=== PATIENT | female | born 1960 | race Caucasian/White ===

== ENCOUNTER → 2017-09-20 12:45 | Outpatient (CLI) | payer BC, SELFPAY ==
--- NOTE | 2017-09-20 12:48 | BI_ITS ---
MAMMOGRAPHY - BILATERAL SCREENING REASON FOR EXAM: Female, 57 years old. Routine annual screening examination. PERTINENT HISTORY: Mother with breast cancer. TECHNIQUE: Digital bilateral breast luc (3D mammographic acquisition) in the CC and MLO projections. 2-D mediolateral oblique (MLO) and craniocaudad (CC) views of both breasts were obtained. CAD: Full Field Digital Mammography with Computer Added Detection was performed. COMPARISON: Comparison is made with prior study dated August 03, 2016 and January 29 FINDINGS: Breast Composition: The breasts are heterogeneously dense, which may obscure small masses. There are no dominant masses or suspicious calcifications. No other significant abnormalities are identified. There has been no significant change since the prior study. BI/SCREENING MAMM (CAD), BILAT IMPRESSION: Stable bilateral screening mammogram. Yearly follow-up mammogram recommended. (A) ASSESSMENT CATEGORY: BIRADS Category 1: Negative. A letter regarding these results will be sent to the patient by the facility within 30 days. Approximately 10% of breast cancers are not detected by mammography. A normal mammogram should not delay biopsy of a clinically suspicious abnormality. [id number] Electronically Signed: Vance Hairston MD at 14:59 EDT Tel [phone], Service support ,
== END ==
PROVIDERS: Family Provider Internal Medicine; PCP Internal Medicine; Visit Provider Obstetrics & Gynecology
DX: Z12.31 Encounter for screening mammogram for malignant neoplasm of breast (principal)
CPT/HCPCS: 77063; 77067

== ENCOUNTER → 2018-10-18 11:21 | Outpatient (CLI) | payer BC, SELFPAY | PROVIDERS: Visit Provider Obstetrics & Gynecology | DX: M85.9 Disorder of bone density and structure, unspecified (principal) | CPT/HCPCS: 36415; 82306 ==

== ENCOUNTER → 2018-11-13 10:17 | Outpatient (CLI) | payer BC, SELFPAY ==
--- NOTE | 2018-11-13 10:21 | BI_ITS ---
MAMMOGRAPHY - BILATERAL SCREENING REASON FOR EXAM: Female, 58 years old. Routine annual screening examination. PERTINENT HISTORY: Mother with breast cancer. TECHNIQUE: Digital bilateral breast danielle (3D mammographic acquisition) in the CC and MLO projections. 2-D mediolateral oblique (MLO) and craniocaudad (CC) views of both breasts were obtained. CAD: Full Field Digital Mammography with Computer Added Detection was performed. COMPARISON: Comparison is made with prior study dated September 20, 2017 and August 03, 2016. FINDINGS: Breast Composition: The breasts are heterogeneously dense, which may obscure small masses. There are no dominant masses or suspicious calcifications. No other significant abnormalities are identified. There has been no significant change since the prior study. BI/SCREEN MAMM (CAD) W/DANIELLE BILAT IMPRESSION: Stable bilateral screening mammogram. Yearly follow-up mammogram recommended. (A) ASSESSMENT CATEGORY: BIRADS Category 1: Negative. A letter regarding these results will be sent to the patient by the facility within 30 days. Approximately 10% of breast cancers are not detected by mammography. A normal mammogram should not delay biopsy of a clinically suspicious abnormality. [id number] Electronically Signed: Vance Hairston, at 12:34 EDT , Service support ,
--- NOTE | 2018-11-13 10:24 | BD_ITS ---
STUDY: DUAL ENERGY X-RAY ABSORPTIOMETRY / DXA REASON FOR EXAM: Female, 58 years old. The patient is postmenopausal. Loss of height. TECHNIQUE: Bone Mineral Density (BMD) measurements of lumbar spine and bilateral hips were obtained. COMPARISON: Comparison is made with prior study dated August 03, 2016. FINDINGS: Lumbar Spine (L1-L4): g/cm2 (0.905) / T-score (-2.3) / Z-score (-1.4) Findings are suggestive of osteopenia with a high fracture risk. Left Femur Total: g/cm2 (0.738) / T-score (-2.1) / Z-score (-1.4) Left Femoral Neck: g/cm2 (0.700) / T-score (-2.4) / Z-score (-1.4) Right Femur Total: g/cm2 (0.696) / T-score (-2.5) / Z-score (-1.4) The T-Scores on the most recent prior examination were: Lumbar Spine (L1-L4): There has been worsening of bone density since the previous examination. Left Femur Total: which represents a worsening of 2%. Right Femur Total: which represents a worsening of 8.3%. BD/Dexa Bone Density Study IMPRESSION: The patient is considered osteopenic as outlined below according to World Malcolm Organization (WHO) criteria with a high fracture risk. There has been worsening of bone density since the previous examination. Reference Information: The T-score is the number of standard deviations above or below the standard which is normal for young adults at their peak bone mineral density. The World Health Organization (WHO) interprets the T-scores as follows: Above -1 Normal bone density Between -1 and -2.5 Osteopenia Equal to / or below -2.5 Osteoporosis As a practical clinical guideline, osteopenia may be graded as follows: Mild -1 through -1.5 Moderate -1.6 through -2.0 Severe -2.1 through -2.4 The Z-score is the number of standard deviations above or below age-matched controls. A Z-score of less than -1.5 would be considered abnormal. References: 1. NIH Osteoporosis and Related Bone Diseases http://www.osteo.org 2. International Society for Clinical Densitometry http://www.iscd.org 3. National Osteoporosis Foundation http://www.nof.org Electronically Signed: Vance Hairston, at 8:35 EDT , Service support ,
== END ==
PROVIDERS: Family Provider Internal Medicine; PCP Internal Medicine; Referring Provider Obstetrics & Gynecology; Visit Provider Obstetrics & Gynecology
DX: Z12.31 Encounter for screening mammogram for malignant neoplasm of breast (principal); M85.9 Disorder of bone density and structure, unspecified
CPT/HCPCS: 77063; 77067; 77080

== ENCOUNTER → 2018-12-16 09:48 | Outpatient (CLI) | payer BC, SELFPAY ==
[2018-12-12 14:15] VITALS: BMI 22.3
[2018-12-16 10:48] LABS: Absolute Lymphocyte Count 2.36 X10^3/uL (0.83-4.51); Absolute Neutrophil Count 2.8 X10^3/uL (2.0-7.7); Basophil# 0.07 X10^3/uL; Basophil% 1.2 % (0-1); Eosinophil# 0.07 X10^3/uL; Eosinophils% 1.2 % (0-5); Hematocrit 40.7 % (37-47); Hemoglobin 13.4 g/dL (12.0-15.0); Lymphocyte # 2.36 X10^3/ul (4.0); Lymphocyte % 39.8 % (19-41); Mean Corp Hgb Conc 32.9 g/dL (32-36); Mean Corpuscular Hgb 31.7 pg (27.0-32.0); Mean Corpuscular Volume 96.2 fL (81-99); Mean Platelet Vol. 10.6 fl (6.2-12.0); Monocyte# 0.59 X10^3/uL; Monocyte% 9.9 % (0-10); NRBC Flagged by Analyzer 0 % (0-5); Neutrophil # 2.83 X10^3/uL (2.7-7.7); Neutrophil % 47.7 % (47-70); Platelet Count 232 K/mm3 (150-450); RBC Distribution Width CV 12.7 % (11.6-14.6); RBC Distribution Width SD 45.1 fl (35.1-43.9); Red Blood Count 4.23 M/mm3 (4.2-5.4); White Blood Count 5.9 K/mm3 (4.4-11.0)
[2018-12-16 11:11] LABS: PTHIN 60.7 pg/mL (18.4-80.1)
[2018-12-16 11:16] LABS: AST(SGOT) 21 U/L (15-37); Alanine Aminotransfer ALT/SGPT 29 U/L (13-56); Albumin, Serum 3.8 g/dL (3.2-5.0); Alkaline Phosphatase 65 U/L (45-117); Anion Gap 1 (5-15); BUN 16 mg/dL (7-18); BUN/Creat Ratio 17.1 RATIO (10-20); Calcium,Total 8.9 mg/dL (8.5-10.1); Chloride 106 mmol/L (98-107); Cholesterol 192 mg/dL (200); Creatinine, Serum 0.94 mg/dL (0.55-1.02); EST Glomerular Filtration Rate 66 mL/min (>60); Est Glom Filt Rate - Afr Amer 80 mL/min (>60); Globulin 3.9 g/dL (2.2-4.2); Glucose 93 mg/dL (74-106); High Density Lipoprotein 75 mg/dL; Potassium 4.4 mmol/L (3.5-5.1); Protein, Total 7.7 g/dL (6.4-8.2); Sodium Level 139 mmol/L (136-145); Triglycerides 61 mg/dL; Very Low Density Lipoprotein 12 mg/dL (5-40)
== END ==
PROVIDERS: Family Provider Internal Medicine; PCP Internal Medicine; Referring Provider Internal Medicine Endocrinology, Diabetes & Metabolism; Visit Provider Internal Medicine Endocrinology, Diabetes & Metabolism
DX: M81.0 Age-related osteoporosis without current pathological fracture (principal)
CPT/HCPCS: 36415; 80053; 80061; 83970; 85025

== ENCOUNTER → 2020-04-13 15:19 | Outpatient (CLI) | payer BC, SELFPAY ==
[2020-04-09 16:05] VITALS: BMI 22.8
[2020-04-13 16:58] LABS: ALB/GLOB Ratio 0.9 RATIO (0.9-2.4); AST(SGOT) 23 U/L (15-37); Alanine Aminotransfer ALT/SGPT 31 U/L (13-56); Albumin, Serum 3.7 g/dL (3.2-5.0); Alkaline Phosphatase 85 U/L (45-117); Anion Gap 5 (5-15); BUN 20 mg/dL (7-18); BUN/Creat Ratio 21.8 RATIO (10-20); Calcium,Total 8.9 mg/dL (8.5-10.1); Chloride 104 mmol/L (98-107); Creatinine, Serum 0.92 mg/dL (0.55-1.02); EST Glomerular Filtration Rate 67 mL/min (>60); Est Glom Filt Rate - Afr Amer 81 mL/min (>60); Globulin 3.9 g/dL (2.2-4.2); Glucose 124 mg/dL (74-106); Potassium 4.3 mmol/L (3.5-5.1); Protein, Total 7.6 g/dL (6.4-8.2); Sodium Level 139 mmol/L (136-145)
[2020-04-13 17:01] LABS: Vitamin D,25 Hydroxy 15.8 ng/mL
== END ==
PROVIDERS: PCP Internal Medicine; Visit Provider Internal Medicine Endocrinology, Diabetes & Metabolism
DX: E55.9 Vitamin D deficiency, unspecified (principal); M81.0 Age-related osteoporosis without current pathological fracture
CPT/HCPCS: 36415; 80053; 82306

== ENCOUNTER → 2020-08-10 15:57 | Outpatient (CLI) | payer BC, SELFPAY ==
[2020-04-09 16:05] VITALS: BMI 22.8
[2020-08-15 10:20] LABS: HPV APTIMA, High Risk Negative (Negative)
== END ==
PROVIDERS: PCP Internal Medicine; Visit Provider Student in an Organized Health Care Education/Training Program
DX: Z12.4 Encounter for screening for malignant neoplasm of cervix (principal)
CPT/HCPCS: 87624; 88175; G0145

== ENCOUNTER → 2020-08-26 12:17 | Outpatient (CLI) | payer BC, SELFPAY ==
[2020-04-09 16:05] VITALS: BMI 22.8
--- NOTE | 2020-08-26 12:20 | BI_ITS ---
MAMMOGRAPHY - BILATERAL SCREENING REASON FOR EXAM: Female, 60 years old. Routine annual screening examination. PERTINENT HISTORY: Mother with breast cancer. TECHNIQUE: Digital bilateral breast danielle (3D mammographic acquisition) in the CC and MLO projections. 2-D mediolateral oblique (MLO) and craniocaudad (CC) views of both breasts were obtained. CAD: Full Field Digital Mammography with Computer Added Detection was performed. COMPARISON: Comparison is made with prior study dated 11/13/2018 and 09/20/2017. FINDINGS: Breast Composition: The breasts are heterogeneously dense, which may obscure small masses. There are no dominant masses or suspicious calcifications. No other significant abnormalities are identified. There has been no significant change since the prior study. BI/SCRN MAMM (CAD)W/DANIELLE BILAT IMPRESSION: Stable bilateral screening mammogram. Yearly follow-up mammogram recommended. (A) ASSESSMENT CATEGORY: BIRADS Category 1: Negative. A letter regarding these results will be sent to the patient by the facility within 30 days. Approximately 10% of breast cancers are not detected by mammography. A normal mammogram should not delay biopsy of a clinically suspicious abnormality. [id number] Electronically Signed: Vance Hairston MD at 13:20 EDT , Service support ,
== END ==
PROVIDERS: PCP Internal Medicine; Referring Provider Student in an Organized Health Care Education/Training Program; Visit Provider Student in an Organized Health Care Education/Training Program
DX: Z12.31 Encounter for screening mammogram for malignant neoplasm of breast (principal); Z80.3 Family history of malignant neoplasm of breast
CPT/HCPCS: 77063; 77067

== ENCOUNTER 2021-04-11 16:17 | Emergency (ER) | payer BC, SELFPAY ==
[2021-04-11] VITALS (7 sets, daily range): BP systolic 99–123; BP diastolic 69–82; PULSE 62–84; RESP 14–20; TEMP 36; O2SAT 99–100; BMI 21.9
--- NOTE | 2021-04-11 16:25 | RAD_ITS ---
STUDY: X-RAY - LEFT WRIST REASON FOR EXAM: Female, 61 years old. PT FELL ROLLER SKATING, PAIN AND DEFORMITY TECHNIQUE: 3 view(s) of the wrist were obtained. COMPARISON: None. FINDINGS: An acute comminuted impacted and slightly foreshortened fracture of the distal radial metaphysis and articular surface is present. The major fracture fragments are mildly displaced. An acute fracture is also seen through the base of the ulnar styloid with mild displacement. The surrounding soft tissues are mildly swollen. Normal radiocarpal articulation. Normal distal radioulnar articulation. Normal carpal bones. Normal carpal articulations. Normal carpometacarpal articulation of the thumb. Normal second through fifth carpometacarpal articulations. Normal visualized metacarpal bones. RAD/Wrist min 3 Views IMPRESSION: 1. Acute comminuted fracture of the distal radial metaphysis and articular surface 2. Acute displaced fracture of the ulnar styloid Electronically Signed: Michelet Talbert MD at 17:14 EST ,
[2021-04-11] MEDS: Morphine 4 MG/ML Syringe IV (17:07)
[2021-04-11] MEDS: Ondansetron 4 MG/2 ML Vial IV (17:07)
--- NOTE | 2021-04-11 17:32 | EX.ED.UPPERE ---
HPI <STEVE Marie - Last Filed: 04/11/21 18:32> History of Present Illness Chief Complaint: Upper Extremity Injury Narrative Narrative: 61-year-old [id number] female was rollerskating and fell and caught herself with her left wrist. She has a wrist deformity and pain. No paresthesias. Denies head injury or other injuries. PFSH <STEVE Marie - Last Filed: 04/11/21 18:32> PFSH Medical History (Updated 04/11/21 @ 17:32 by STEVE Marie) Bone fracture Heart murmur Osteopenia Vitamin deficiency Home Medications BD Ultra-Fine Belem Pen Needle 32 gauge x #90 ea NS 04/09/20 [Rx Last Taken Unknown] cholecalciferol (vitamin D3) 1,250 mcg (50,000 unit) capsule 50,000 unit PO QWEEK #12 cap 04/13/20 [Rx Last Taken Unknown] Forteo 20 mcg SC DAILY #7.2 ml NS 01/11/21 [Rx Last Taken Unknown] ondansetron 4 mg PO Q6H PRN #12 tab 04/11/21 [Rx Last Taken Unknown] oxycodone-acetaminophen [Percocet] 1 tab PO Q6H PRN 3 Days #12 tab 04/11/21 [Rx Last Taken Unknown] Allergy/AdvReac Type Severity Reaction Status Date / Time No Known Allergies Allergy Unverified 04/11/21 10:39 Family History Mother Breast cancer Surgical History History of Social History Smoking Status: Never smoker alcohol intake: current alcohol intake frequency: a few times a week what type of physical activity do you participate in: weight training frequency: 3-4 times per week ROS <STEVE Marie - Last Filed: 04/11/21 18:32> ROS ED ROS Narrative Constitutional: Negative for fever, chills, malaise. Eyes: Negative for visual change. ENT: Negative for sore throat, ear pain, rhinorrhea. CVS: Negative for palpitations, chest pain, syncope. Respiratory: Negative for shortness of breath, cough, orthopnea. GI: Negative for abdominal pain, nausea, vomiting. : Negative for dysuria, hematuria or frequency. Neuro: Negative for headache, motor/sensory dysfunction. Skin: Negative for rash, abscess, or wound. Musc: Positive for wrist pain, swelling, trauma. Heme: Negative for easy bruising, bleeding, lymphadenopathy. EXAM <STEVE Marie - Last Filed: 04/11/21 18:32> Physical Exam Narrative Exam Narrative: CONST: Patient sitting in no acute distress. EYES: Normal inspection. Head: Head normocephalic, atraumatic. NECK: Normal inspection. RESP: No respiratory distress, CTAB. CVS: Regular rate and rhythm, no murmur, no gallop. No chest wall tenderness. ABD: Soft and nontender, no guarding or rebound, nondistended. Back: Normal inspection, no CVA tenderness. SKIN: Color normal, no rash, warm, dry, intact. EXTREMITIES: Left wrist deformity with diffuse tenderness, 2+ radial pulse. Sensation intact in median, ulnar, radial distributions. NEURO: Oriented x4. PSYCH: Normal affect. Const Vital Signs: 04/11/21 16:18 Temperature 96.8 F L Temperature Source Temporal Pulse Rate 77 Respiratory Rate 17 Blood Pressure 104/73 Blood Pressure Mean 83 Pulse Ox 99 Oxygen Delivery Method Room Air MDM <STEVE Marie - Last Filed: 04/11/21 18:32> MDM MDM Narrative Medical decision making narrative: Patient presents with a left wrist deformity after mechanical fall. She appears well nontoxic. Vital signs within normal limits. She has no evidence of head or neck trauma. She has an obvious left wrist deformity with pulses and sensation intact. Exam otherwise negative. X-ray shows a comminuted and impacted distal radius fracture with significant angulation. There is also a fracture of the ulnar styloid. I consulted the orthopedic doctor, Dr. Gabriele Jennings, who came to bedside for reduction. Patient was consented for procedural sedation which was administered by the ED attending. Wrist was placed in a splint and postreduction x-rays confirmed improved alignment. Patient tolerated the procedure well and is now awake and alert and comfortable with the plan. I prescribed Percocet, Zofran, and she has orthopedic follow-up on . She was discharged in stable condition. Diagnosis 1. Closed distal radius fracture, left wrist 2. Closed ulnar styloid fracture, left wrist Radiography Diagnostic Testing: Clinical Impression(s) from Imaging Studies Wrist X-Ray 04/11/21 16:25 IMPRESSION: 1. Acute comminuted fracture of the distal radial metaphysis and articular surface 2. Acute displaced fracture of the ulnar styloid Electronically Signed: Michelet Talbert MD at 17:14 EST Reading Location ID and State: [facility] / [place] , Service support , <Dr. Komal Martínez MD - Last Filed: 04/11/21 21:14> [facility] Treatment and Re-Evaluation Comments:: Patient seen and evaluated with physician library serials assistant. Patient's chart reviewed and endorsed to myself. Patient presents after a fall while rollerskating. She has obvious deformity to her left wrist. She denies any other injury. She is right-hand dominant. Head neck examination unremarkable. Heart is regular rate and rhythm. Lung sounds are clear. Abdomen is soft and nontender. Left upper extremity examination reveals obvious deformity at the left wrist. Rings are removed from her fingers. Palpable radial pulses are noted. She can wiggle fingers and has good sensation. No tenderness noted at the elbow or shoulder. X-rays revealed comminuted distal radius and ulnar styloid fractures. X-rays discussed with orthopedics who presented to bedside for reduction. I provided procedural sedation. Patient was placed on bark tanner with oxygen. She was given a total of 130 mg of propofol over several smaller boluses. Good sedation was noted and left wrist was reduced and splinted by Dr. Jennings. Patient will from sedation without difficulty. Total sedation time was 6 minutes. Patient is written for pain medication. She has orthopedic follow-up scheduled later this week. Discharge Plan Triage Chief Complaint: Upper Extremity Injury ED Provider: Divya Merrill Dx/Rx/DC Orders Clinical Impression: Fracture of wrist Instructions: ED Colles Fracture, Reduction Required Prescriptions: New oxycodone-acetaminophen [Percocet] 5-325 mg tablet 1 tab PO Q6H PRN (Reason: pain) 3 Days Qty: 12 RF: 0 ondansetron 4 mg tablet,disintegrating 4 mg PO Q6H PRN (Reason: nausea and vomiting) Qty: 12 RF: 0 No Action (DME) pen needle, diabetic [BD Ultra-Fine Belem Pen Needle] 32 gauge x 5/32 needle See Rx Instructions .ROUTE .MEDSUPPLY Qty: 90 RF: 3 cholecalciferol (vitamin D3) 1,250 mcg (50,000 unit) capsule 50,000 unit PO QWEEK Qty: 12 RF: 3 Forteo 20 mcg/dose (600mcg/2.4mL) pen injector 20 mcg SC DAILY Qty: 7.2 RF: 2 Primary Care Provider: Heather Rivera Referrals: Heather Rivera DO [Primary Care Provider] - Gabriele Jennings MD [STAFF PHYSICIAN] - Activity Restrictions/Additional Instructions: Today you were seen for fracture of your wrist. It was reduced which means the orthopedic doctor tried to put it back in alignment and placed a splint. I prescribed Percocet to take as needed for pain and Zofran to prevent nausea and vomiting. Please follow-up with the orthopedic doctor as instructed. Disposition Disposition: Home, Self Care Discharge Date/Time: 04/11/21 18:16
[2021-04-11] MEDS: Propofol 200 MG/20 ML Vial IV BOLUS (17:34)
--- NOTE | 2021-04-11 18:03 | CON.PCM_ITS ---
Assessment & Plan Assessment/Plan (1) Fracture of wrist: PLAN: Her diagnosis and treatment options regarding her left distal radius Colles' type fracture discussed with her and her family. Patient did wish to have closed reduction. She understood this would be done with the help of the ER physician, conscious sedation. She understood if the fracture does not hold in place after reduction she may need surgical intervention. No guarantees were stated or implied. Procedure: After obtaining appropriate consent patient underwent conscious sedation is administered by the ER physician. After adequate conscious sedation she underwent reduction with traction countertraction and manipulation of her left wrist. ER nurse was assisting me. After adequate reduction was carried out fluoroscopic images obtained showing good reduction. At this point she was placed in well-padded AP splints with careful three-point bending of the splints. Once splints were adequately hardened in a short arm fashion further set of AP and lateral x-rays taken and saved showing near anatomic position of the radius and ulna. After the splints had completely hardened I put an elbow splint extending from her upper arm to her wrist with the elbow at 90 degrees. Patient will continue under the care of the emergency room physician. She will be discharged to home when criteria are met. Appropriate pain medication per the ER physician. Sling if needed. Ice and elevation. We will plan to see her in the office in less than 1 week for x-rays with her splint on. Sooner if needed. All of their questions were answered. This note was generated with [employer] dictation software. It may contain incorrect words, spelling, and punctuation that were not noted in checking the note before signing. HPI Consult Data Date of Consult: 04/11/21 HPI Narrative HPI Narrative: ALEXA MINA, is a 61 F who presents after falling while rollerblading earlier today. She sustained left wrist pain and deformity. Denies head injury or loss of consciousness. She was brought to [facility] for a fracture. Orthopedics was consulted. Denies numbness or tingling in the fingers. [facility] Medical History (Updated 04/11/21 @ 17:32 by STEVE Marie) Bone fracture Heart murmur Osteopenia Vitamin deficiency Home Medications BD Ultra-Fine Belem Pen Needle 32 gauge x #90 ea NS 04/09/20 [Rx Last Taken Unknown] cholecalciferol (vitamin D3) 1,250 mcg (50,000 unit) capsule 50,000 unit PO QWEEK #12 cap 04/13/20 [Rx Last Taken Unknown] Forteo 20 mcg SC DAILY #7.2 ml NS 01/11/21 [Rx Last Taken Unknown] ondansetron 4 mg PO Q6H PRN #12 tab 04/11/21 [Rx Last Taken Unknown] oxycodone-acetaminophen [Percocet] 1 tab PO Q6H PRN 3 Days #12 tab 04/11/21 [Rx Last Taken Unknown] Allergy/AdvReac Type Severity Reaction Status Date / Time No Known Allergies Allergy Unverified 04/11/21 10:39 Family History Mother Breast cancer Surgical History History of Social History Smoking Status: Never smoker alcohol intake: current alcohol intake frequency: a few times a week what type of physical activity do you participate in: weight training frequency: 3-4 times per week ROS ROS Narrative Denies any recent problems or difficulties with eyes ears nose or throat heart or lungs bowel or bladder function. Physical Exam Narrative Left wrist has obvious deformity. Left wrist has pain on palpation. Some swelling. Hand is neurovascular intact. Fingers are neurovascular intact. No pain at the elbow or shoulder. No pain at the right upper extremity. X-rays AP lateral oblique of left wrist shows a distal radius Colles' type fracture with apex volar angulation. Significant comminution and shortening and displacement. Case discussed with ER physician Radiology Impression Wrist X-Ray 04/11/21 16:25 IMPRESSION: 1. Acute comminuted fracture of the distal radial metaphysis and articular surface 2. Acute displaced fracture of the ulnar styloid Electronically Signed: Michelet Talbert MD at 17:14 EST Reading Location ID and State: [facility] / [place] , Service support ,
== END 2021-04-11 18:16 | disposition home or self-care (01) ==
PROVIDERS: Emergency Provider Physician Assistant; PCP Internal Medicine; Visit Provider Physician Assistant
DX: S52.612A Displaced fracture of left ulna styloid process, initial encounter for closed fracture (principal); W23.0XXA Caught, crushed, jammed, or pinched between moving objects, initial encounter; S52.353A Displaced comminuted fracture of shaft of radius, unspecified arm, initial encounter for closed fracture; S52.502A Unspecified fracture of the lower end of left radius, initial encounter for closed fracture; W19.XXXA Unspecified fall, initial encounter; M25.539 Pain in unspecified wrist
CPT/HCPCS: 25605; 73110; 76000; 99283; J7030; A4216; J2405

== ENCOUNTER 2021-04-20 11:01 | Outpatient (CLI) | payer BC, SELFPAY ==
--- NOTE | 2021-04-20 11:05 | BD_ITS ---
STUDY: DUAL ENERGY X-RAY ABSORPTIOMETRY / DXA REASON FOR EXAM: Female, 61 years old. Osteoporosis TECHNIQUE: Bone Mineral Density (BMD) measurements of lumbar spine and bilateral hips were obtained. COMPARISON: Comparison is made with prior study dated 11/13/2018 FINDINGS: Lumbar Spine (L1-L4): g/cm2 (0.823) / T-score (-2.0) / Z-score (-0.7) Findings are suggestive of osteopenia with a moderate fracture risk. Left Femur Total: g/cm2 (0.722) / T-score (-1.8) / Z-score (-0.9) Left Femoral Neck: g/cm2 (0.552) / T-score (-2.7) / Z-score (-1.4) Right Femur Total: g/cm2 (0.733) / T-score (-1.7) / Z-score (-0.8) Right Femoral Neck: g/cm2 (0.566) / T-score (-2.6) / Z-score (-1.3) The T-Scores on the most recent prior examination were: Lumbar Spine (L1-L4): There has been improvement of bone density since the previous examination. Left Femur Total: which represents an improvement of 6.2%. Right Femur Total: which represents an improvement of 5.6%. BD/Dexa Bone Density Study IMPRESSION: The patient is considered osteoporotic as outlined below according to World Malcolm Organization (WHO) criteria with a high fracture risk. There has been improvement of bone density since the previous examination. Reference Information: The T-score is the number of standard deviations above or below the standard which is normal for young adults at their peak bone mineral density. The World Health Organization (WHO) interprets the T-scores as follows: Above -1 Normal bone density Between -1 and -2.5 Osteopenia Equal to / or below -2.5 Osteoporosis As a practical clinical guideline, osteopenia may be graded as follows: Mild -1 through -1.5 Moderate -1.6 through -2.0 Severe -2.1 through -2.4 The Z-score is the number of standard deviations above or below age-matched controls. A Z-score of less than -1.5 would be considered abnormal. References: 1. NIH Osteoporosis and Related Bone Diseases www osteo.org 2. International Society for Clinical Densitometry www iscd.org 3. National Osteoporosis Foundation www nof.org Electronically Signed: Vance Hairston MD at 8:21 EST ,
== END 2021-04-20 23:59 | disposition home or self-care (01) ==
LOC: OPBD 11:01
PROVIDERS: PCP Internal Medicine; Visit Provider Internal Medicine Endocrinology, Diabetes & Metabolism
DX: M81.0 Age-related osteoporosis without current pathological fracture (principal)
CPT/HCPCS: 77080

== ENCOUNTER → 2021-07-20 | Outpatient (CLI) | payer BC, SELFPAY ==
--- NOTE | 2021-07-20 10:31 | MRI_ITS ---
STUDY: MRI LEFT WRIST WITHOUT CONTRAST REASON FOR EXAM: Loss of range of motion and swelling, left wrist fracture 12 weeks ago. TECHNIQUE: Standardized fat and water weighted pulse sequences were obtained in all 3 orthogonal planes. COMPARISON: Radiographs 06/13/2021. FINDINGS: There is a healing fracture of the distal radius (inversion recovery coronal images 11-16). There is a fracture of the ulnar styloid process with residual bone edema and without osseous union (inversion recovery coronal image 11). Normal distal radioulnar articulation (DRUJ). Normal triangular fibrocartilaginous complex (TFCC). There is a subchondral cyst in the radial aspect of the lunate (gradient coronal images 20-23). Normal radiocarpal, intercarpal and midcarpal articulations. Normal pisotriquetral articulation. Normal visualized interosseous scapholunate ligament. Normal extensor tendons. Normal flexor tendons. Normal carpal tunnel with a normal median nerve. There is mild arthrosis of the carpometacarpal articulation of the thumb with small marginal osteophytes and mild chondral thinning (gradient coronal image 20). Normal second through fifth carpometacarpal articulations. Normal visualized metacarpal bones. There is mild edema in the subcutis adipose space. MRI/Upper Ext Joint Only(Routine) IMPRESSION: Healing fracture of the distal radius. Fracture of the ulnar styloid process without osseous union. Mild arthrosis of the first carpometacarpal articulation. Subchondral cyst in the lunate. Electronically Signed: Paulino Barkley MD at 14:28 EDT ,
== END | disposition home or self-care (01) ==
LOC: MRI 10:16
PROVIDERS: PCP Internal Medicine; Visit Provider Anesthesiology Pain Medicine
DX: S52.92XD Unspecified fracture of left forearm, subsequent encounter for closed fracture with routine healing (principal); M25.432 Effusion, left wrist; M18.12 Unilateral primary osteoarthritis of first carpometacarpal joint, left hand
CPT/HCPCS: 73221

== ENCOUNTER → 2021-09-05 | Outpatient (CLI) | payer BC, SELFPAY ==
[2021-09-05 14:37] VITALS: BP 117/75; PULSE 75; RESP 16; TEMP 36.3; O2SAT 95; BMI 21.9
[2021-09-05] MEDS: DENOSUMAB 60 MG/ML SC (14:41)
== END | disposition home or self-care (01) ==
LOC: MEDOUTP 14:22
PROVIDERS: PCP Internal Medicine; Referring Provider Nurse Practitioner Family; Visit Provider Nurse Practitioner Family
DX: M81.0 Age-related osteoporosis without current pathological fracture (principal)
CPT/HCPCS: 96372; J0897

== ENCOUNTER 2021-12-14 10:00 | Outpatient (RCR) | payer BC, SELFPAY ==
--- NOTE | 2021-05-30 16:13 | HP.OTEVAL ---
Patient's Visit Information ALEXA MINA is a 61 year old F, referred to Occupational Therapy by Dr. Gabriele Jennings MD, with a diagnosis of S52.532D colles' fx left radius. Date of Evaluation: 05/30/21 Occupational Therapist: Adelita Baer - Subjective Pt is 61 y/o female who presents s/p Colles fx (L); onset date of 04/11/21 after rollerskating fall; Pt had comminuted and impacted distal radius fx and fx of ulnar styloid; pt underwent beside reduction and was put in a splint from wrist to forearm w 90* elbow flexion; pt presents today after having splint on for 6 weeks (elbow for 3 weeks); pt had x-rays last week and surgeon said that the bones look good but thinks patient has RSD; pt reports that doctor said to try to use it as tolerated and follow up in 3 weeks; She has over the counter wrist splint: 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 - ADLs Dressing: Bra, Overhead shirt, Coat, Pants Fasteners: Buttons, Zippers Eating: Cut food, Butter bread Toileting: Manage clothing Grooming: Comb hair, Put on makeup Kitchen: Chop with knife, Peel fruits & vegetables, Open jars, Ziplock bags, Lift gallon of milk, Lift saucepan, Take dish out of oven, Place dish in microwave Household: Dust, Laundry - Pain Left Hand 6 Pain Intensity Range: 3, 9 - Objective Pt presents with moderate swelling in digits and wrist; bruising of base of thumb and ulnar wrist; - ROM Elbow: L - R WFL Forearm: L sup; 65 R WFL Wrist: L flex; 34* ext: -5 R WFL MP: L 36 R WFL IP: L 25 R WFL Opposition: 0 MP: IF: 47 MF: 47 RF: 42 LF: 35 PIP: IF: 37 MF: 45 RF: 55 LF: 55 DIP: IF: 21 MF: 35 RF: 28 LF: 25 - Strength Shoulder: grossly 4-/5 Elbow: bicep 3+/5 triceps 4-/5 Phosphoric Acid Supervisor: R: 46# L: 0 Lateral Pinch: R: 11# L: 0 Tripod Pinch: R: 10# L: 0 - Edema Wrist: R 14 cm L 17.5 cm PIP: L IF: 6.3 MF: 6.4 RF: 6.1 LF: 5.6 Other: R PIP IF 5.7 MF 5.8 RF 5.5. LF 4.9 - Quick DASH-Disab of Arm,Shoulder& Hand Quick DASH Score: 90.9075 - Goals Goal:: Pt will improve L labor delivery specialist strength >10# and tripod pinch strength to >2# in order to improve function for ADLS/IADLS by discharge. Goal:: Pt will improve L hand ROM to make loose composite fist in order to improve grasp/pinch tasks by discharge. Goal:: Pt will report decrease in pain to no more than 3/10 during prior functional tasks by discharge Goal:: Pt will demo decreased edema in wrist and digits w/in .2 cm comparable to R hand by discharge Goal:: Pt will report increase in functional use of L hand during functional tasks including bathing, groooming and dressing tasks by discharge. - Rehabilitation General Assessment: Pt presents with moderate swelling, limited ROM, limited strength, and overall mobility hindering her ability to complete prior functional tasks including ADLs, IADLs and work. Pt would benefit from cont. therapy services for 2x/week for 6 weeks to address skill deficits. Rehabilitation Potential: Good - Anticipated Interventions A/AAROM/PROM, Strengthening, Edema Control, Massage, Triggerpoint Release, Desensitization, Modalities, Orthoses, Home Program - Visit Plan Frequency: 2x /Week Duration: 6 Weeks TEXT: Thank you for the opportunity to evaluate your patient. For Medicare and Medicare HMO plans, please review the plan of care and approve it. It will need to be FAXED BACK to us at [phone] for Medicare purposes. Please let me know if there are questions or concerns regarding this plan of care. Physician Signature: Date:
--- NOTE | 2021-07-25 17:59 | OTREVAL_ITS ---
Dr. Gabriele Jennings MD, It has been my pleasure to treat ALEXA HILL MINA over the last 10 visits for S52.532D colles' fx left radius. Please see the progress note below for an update on the occupational therapy plan of care! Subjective: pt arrives to OT session after being on vacation with her dtr- states she went to pain mtg- (states she did see dr. jennings) but will go to get MRI results tomorrow) - Objective/Function: left wrist ROM 40/25. left wrist RD 10 UD 15. left forearm supination to N only. pt can perform opposition to tip of LF. left veneer taping machine offbearer strength 10#. right veneer taping machine offbearer strength 60#. left lateral pinch 2#. left tripod pinch unable. left digits. IF MCP 0/60 PIP 0/75 DIP 0/60. MF MCP 0/50 PIP 0/80 DIP 0/60. RF MCP 0/45PIP 0/80 DIP 0/45. LF MCP 0/60 PIP 0/80 DIP 0/35. pt continues to compensate for limited forearm rotation- with shoulder external rotation and bringing her elbow in front of her body to get her her palm up -. pt has not been seen in OT for over 3 weeks due to her travel schedule - based on her measurements prior to her trip she fluctuated about 5-10*. therapist noted less wrist drop with ambulation-. pt tolerating therapy well- will continue with her ROM as tolerated Pain mtg. did give her pain medication so we can be more aggressive in therapy. based on MRI report pt may benefit from a stat-a-dyne brace to progress pts wrist and forearm ROM. will wait for. Plan Frequency: 2-3x /Week Duration: 6 Weeks Visits in this POC: 24 Plan: gave stress loading ex. sheetEd. pt that she needed to schedule 3x week as to with her work schedule to get more therapy- therapist advised to work with her hand for 10 min every hour - ( pt hasn't been doing that much). therapist will continue with sensory re-ed/desensitization and transition to shoulder isometric to decrease risk of injury as well as transition to functional grasp of different objects size and shape- Due to limited forearm supination pt may benefit from a stat-a-dyne. Goals - Goals Patient Goals: Regain Mobility, Regain Strength, Decrease Pain, Return to Work, Decrease Swelling/Stiffness, Improve Fine Motor Skills, Use Hand/Wrist/Arm Normally Again, Sleep Better, Decrease Tingling/Numbness, Increase ROM, Be More Independent in ADLS, Decrease Sensitivity, Resume Former Household Responsibilities (Cooking,Cleaning,Yard, etc.), Resume Hobbies Goal:: Pt will improve L veneer taping machine offbearer strength >10# and tripod pinch strength to >2# in order to improve function for ADLS/IADLS by discharge. Goal:: Pt will improve L hand ROM to make loose composite fist in order to improve grasp/pinch tasks by discharge. Goal:: Pt will report decrease in pain to no more than 3/10 during prior functional tasks by discharge Goal:: Pt will demo decreased edema in wrist and digits w/in .2 cm comparable to R hand by discharge Goal:: Pt will report increase in functional use of L hand during functional tasks including bathing, groooming and dressing tasks by discharge. Anticipated Interventions Anticipated Interventions: A/AAROM/PROM, Strengthening, Edema Control, Massage, Triggerpoint Release, Desensitization, Modalities, Orthoses, Home Program Please do not hesitate to contact me at [phone] by phone or if you have questions or concerns regarding this new plan of care! Sincerely, ZEFERINO Tomas/Shlomo, CHT
--- NOTE | 2021-09-08 13:06 | OTREVAL_ITS ---
Dr. Gabriele Jennings MD, It has been my pleasure to treat ALEXA HILL MINA over the last 16 visits for S52.532D colles' fx left radius. Please see the progress note below for an update on the occupational therapy plan of care! Subjective: pt arrives states she is doing ok- is worried her LF PIP is not straightening- pt states she is really working on her stretching daily Objective/Function: left wrist 45/50* increase from 40/25*. left forearm supination 40 increase from neutral. . left regulatory specialist strength is 20# this is increase from 10# right regulatory specialist strength 50#. pt demo the ability to from a composite fist this is improvement from prior measurements-. edema measurements of MCP left 18cm left 18cm, MF PIP left 5.9 right 5.6 (edema has significantly improved). Pt continues to make gains with her recovery- forearm supination continues to limit her function and pts weak regulatory specialist- therapy has pt working on supination and we have her on our BTE to increase her strength- this machine challenges different telecommunications facility examiner ( simulates jar lid, screw sulky driver, and regulatory specialist squeeze). pt has initiated a PRE at her local gym and she exercises as tolerated and what her limited ROM will allow. pt would benefit from continued services to improve ROM and strength of left UE to return to a PLOF with ADLs and IADLS . Plan Frequency: 2-3x /Week Duration: 6 Weeks Visits in this POC: 24 Plan: end range stretch. strengthening Goals - Goals Patient Goals: Regain Mobility, Regain Strength, Decrease Pain, Return to Work, Decrease Swelling/Stiffness, Improve Fine Motor Skills, Use Hand/Wrist/Arm Normally Again, Sleep Better, Decrease Tingling/Numbness, Increase ROM, Be More Independent in ADLS, Decrease Sensitivity, Resume Former Household Responsibilities (Cooking,Cleaning,Yard, etc.), Resume Hobbies Goal:: Pt will improve L regulatory specialist strength >10# and tripod pinch strength to >2# in order to improve function for ADLS/IADLS by discharge. Goal:: Pt will improve L hand ROM to make loose composite fist in order to improve grasp/pinch tasks by discharge. Goal:: Pt will report decrease in pain to no more than 3/10 during prior functional tasks by discharge Goal:: Pt will demo decreased edema in wrist and digits w/in .2 cm comparable to R hand by discharge Goal:: Pt will report increase in functional use of L hand during functional tasks including bathing, groooming and dressing tasks by discharge. Anticipated Interventions Anticipated Interventions: A/AAROM/PROM, Strengthening, Edema Control, Massage, Triggerpoint Release, Desensitization, Modalities, Orthoses, Home Program Please do not hesitate to contact me at [phone] by phone or if you have questions or concerns regarding this new plan of care! Sincerely, Eileen Soto, OTR/L, CHT
--- NOTE | 2021-11-18 09:07 | OTREVAL_ITS ---
Dr. Gabriele Jennings MD, It has been my pleasure to treat ALEXA HILL MINA over the last 19 visits for S52.532D colles' fx left radius. Please see the progress note below for an update on the occupational therapy plan of care! Subjective: pt arrives after 30 days of working on her own with her HEP - pt states she struggles with doing dishes- holding deodorant to put under her right arm- feels pain and weakness continues to limit he with all dil Objective/Function: pt returns to OT after 4 weeks of unable to schedule do to travel etc. pt continues to demo difficulty with forearm supination and wrist ext. see below for measurements. UD 15. RD 20. wrist 45/50. left forearm supination 55*. shoulder still painful but feels from compensation -. left LF PIP contracture -25*/100. left manager wealth management strength 35# this is increase from 30# tested on 10/17/21. left lateral pinch 10#. left tripod pinch 6#. pt continues to struggle with manager wealth management strength -. therapist advised pt we could focuses on strength 2-3x week for next 3 weeks to get strength up- but pt is traveling in and out the next month- therapist has given putty for HEP for strength along with resistive rings- pt works out at gym with eq.as well on what eq. she feels she can tolerate. pt to schedule as able Plan Frequency: 2-3x /Week Duration: 3 Weeks Visits in this POC: 24 Plan: will focus on PRE as pt is able to schedule do to travel plans Goals - Goals Patient Goals: Regain Mobility, Regain Strength, Decrease Pain, Return to Work, Decrease Swelling/Stiffness, Improve Fine Motor Skills, Use Hand/Wrist/Arm Normally Again, Sleep Better, Decrease Tingling/Numbness, Increase ROM, Be More Independent in ADLS, Decrease Sensitivity, Resume Former Household Responsibilities (Cooking,Cleaning,Yard, etc.), Resume Hobbies Goal:: Pt will improve L manager wealth management strength >10# and tripod pinch strength to >2# in order to improve function for ADLS/IADLS by discharge. Goal:: Pt will improve L hand ROM to make loose composite fist in order to improve grasp/pinch tasks by discharge. Goal:: Pt will report decrease in pain to no more than 3/10 during prior functional tasks by discharge Goal:: Pt will demo decreased edema in wrist and digits w/in .2 cm comparable to R hand by discharge Goal:: Pt will report increase in functional use of L hand during functional tasks including bathing, groooming and dressing tasks by discharge. Anticipated Interventions Anticipated Interventions: A/AAROM/PROM, Strengthening, Edema Control, Massage, Triggerpoint Release, Desensitization, Modalities, Orthoses, Home Program Please do not hesitate to contact me at [phone] by phone or if you have questions or concerns regarding this new plan of care! Sincerely, Eileen Soto, OTR/L, CHT
== END 2021-12-14 19:00 | disposition home or self-care (01) ==
LOC: OT 10:00
PROVIDERS: PCP Internal Medicine; Referring Provider Orthopaedic Surgery; Visit Provider Orthopaedic Surgery
DX: S52.532D Colles' fracture of left radius, subsequent encounter for closed fracture with routine healing (principal)
CPT/HCPCS: 97035; 97110; 97140; 97165; 97530; 97763

== ENCOUNTER → 2021-12-16 | Outpatient (CLI) | payer BC, SELFPAY ==
--- NOTE | 2021-12-16 10:11 | BI_ITS ---
MAMMOGRAPHY - BILATERAL SCREENING REASON FOR EXAM: Female, 61 years old. Routine annual screening examination. PERTINENT HISTORY: Mother with breast cancer. TECHNIQUE: Digital bilateral breast danielle (3D mammographic acquisition) in the CC and MLO projections. 2-D mediolateral oblique (MLO) and craniocaudad (CC) views of both breasts were obtained. CAD: Full Field Digital Mammography with Computer Added Detection was performed. COMPARISON: Comparison is made with prior study dated 08/26/2020 and 11/13/2018. FINDINGS: Breast Composition: The breasts are heterogeneously dense, which may obscure small masses. There are no dominant masses or suspicious calcifications. No other significant abnormalities are identified. There has been no significant change since the prior study. BI/SCRN MAMM (CAD)W/DANIELLE BILAT IMPRESSION: Stable bilateral screening mammogram. Yearly follow-up mammogram recommended. (A) ASSESSMENT CATEGORY: BIRADS Category 1: Negative. A letter regarding these results will be sent to the patient by the facility within 30 days. Approximately 10% of breast cancers are not detected by mammography. A normal mammogram should not delay biopsy of a clinically suspicious abnormality. [id number] Electronically Signed: Vance Hairston MD at 10:52 EDT ,
== END | disposition home or self-care (01) ==
LOC: OPBI 10:10
PROVIDERS: PCP Internal Medicine; Referring Provider Internal Medicine; Visit Provider Internal Medicine
DX: Z12.31 Encounter for screening mammogram for malignant neoplasm of breast (principal); Z80.3 Family history of malignant neoplasm of breast
CPT/HCPCS: 77063; 77067

== ENCOUNTER → 2022-03-06 | Outpatient (CLI) | payer BC, SELFPAY ==
[2022-03-06 14:42] VITALS: BP 114/74; PULSE 72; RESP 16; TEMP 36.5; O2SAT 99; BMI 21.6
[2022-03-06] MEDS: DENOSUMAB 60 MG/ML SC (14:45)
== END | disposition home or self-care (01) ==
LOC: MEDOUTP 14:25
PROVIDERS: PCP Internal Medicine; Referring Provider Nurse Practitioner Family; Visit Provider Nurse Practitioner Family
DX: M81.0 Age-related osteoporosis without current pathological fracture (principal)
CPT/HCPCS: 96372; J0897

== ENCOUNTER → 2022-12-11 | Outpatient (CLI) | payer BC, SELFPAY ==
[2022-12-11 12:49] LABS: Vitamin D,25 Hydroxy 33.6 ng/mL
[2022-12-11 13:12] LABS: AST(SGOT) 19 U/L (15-37); Alanine Aminotransfer ALT/SGPT 24 U/L (13-56); Albumin, Serum 3.6 g/dL (3.2-5.0); Alkaline Phosphatase 43 U/L (45-117); Anion Gap 3 (5-15); BUN 16 mg/dL (7-18); BUN/Creat Ratio 18.6 RATIO (10-20); Calcium,Total 8.8 mg/dL (8.5-10.1); Chloride 107 mmol/L (98-107); Creatinine, Serum 0.86 mg/dL (0.55-1.02); EST Glomerular Filtration Rate 71 mL/min (>60); Est Glom Filt Rate - Afr Amer 86 mL/min (>60); Globulin 3.7 g/dL (2.2-4.2); Glucose 104 mg/dL (74-106); Potassium 4.4 mmol/L (3.5-5.1); Protein, Total 7.3 g/dL (6.4-8.2); Sodium Level 140 mmol/L (136-145)
== END | disposition home or self-care (01) ==
LOC: LAB 11:42
PROVIDERS: PCP Internal Medicine; Referring Provider Internal Medicine Endocrinology, Diabetes & Metabolism; Visit Provider Internal Medicine Endocrinology, Diabetes & Metabolism
DX: E55.9 Vitamin D deficiency, unspecified (principal); M81.0 Age-related osteoporosis without current pathological fracture
CPT/HCPCS: 36415; 80053; 82306

== ENCOUNTER → 2024-06-24 | Outpatient (CLI) | payer BC, SELFPAY ==
--- NOTE | 2024-06-24 09:21 | BD_ITS ---
PROCEDURE: DEXA BONE DENSITY STUDY 06/24/2024 REASON FOR EXAM: COMPARE F, age 64 y/o . Postmenopausal. TECHNIQUE: DEXA scan of sites with data reported below. Scanner utilized: [employer] REFERENCE LINKS: [facility] COMPARISON: DEXA examination dated 04/20/2021 FINDINGS: BMD and T-SCORES Lumbar spine: 0.879 g/cm2, T-score -1.5 Levels: L1 through L4 Change from prior: Increase of 6.8%. Left femoral neck: 0.600 g/cm2, T-score -2.2 Left total hip: 0.757 g/cm2, T-score -1.5 Change from prior: Significant increase of 4.9%. Right femoral neck: 0.632 g/cm2, T-score -2.0 Right total hip: 0.750 g/cm2, T-score -1.6 Change from prior: Increase of 2.2%. The World Health Organization has defined the following categories based on bone density: Normal bone density: T-score equal to or greater than -1.0 Osteopenia: T-score between -1.0 and -2.5 Osteoporosis: T-score equal to or less than -2.5 FRAX (or Comparable) Fracture Risk Assessment: 10 Year Probability of Fracture: Major Osteoporotic Fracture: 32% Hip Fracture: 3.2% (Note: FRAX is not to be reported in setting of normal range bone density, osteoporosis on DEXA, known history of osteoporosis, prior osteoporotic hip or vertebral fracture, or for any patient undergoing pharmacological treatment for bone loss.) The National Osteoporosis Foundation (NOF) recommends pharmacological treatment for patients with a FRAX 10-year risk of 3% or higher for a hip fracture, or 20% or higher for a major osteoporotic fracture, to prevent osteoporosis and reduce fracture risk. The patient does meet the pharmacological treatment recommendations for prevention of osteoporosis. BD/Dexa Bone Density Study IMPRESSION: OSTEOPENIA. Recommend follow-up as clinically warranted. Reading Location: [id number]
== END | disposition home or self-care (01) ==
LOC: OPBD 09:14
PROVIDERS: PCP Internal Medicine; Referring Provider Internal Medicine Endocrinology, Diabetes & Metabolism; Visit Provider Internal Medicine Endocrinology, Diabetes & Metabolism
DX: M81.0 Age-related osteoporosis without current pathological fracture (principal); Z78.0 Asymptomatic menopausal state
CPT/HCPCS: 77080

== ENCOUNTER → 2024-12-02 | Outpatient (CLI) | payer BC, SELFPAY ==
[2024-12-02 16:56] LABS: AST(SGOT) 28 U/L (<=31); Alanine Aminotransfer ALT/SGPT 24 U/L (<=34); Albumin, Serum 4.4 g/dL (3.4-4.8); Alkaline Phosphatase 43 U/L (35-104); Anion Gap 11 (5-15); BUN 16 mg/dL (4-19); BUN/Creat Ratio 18.5 RATIO (10-20); Calcium,Total 9.6 mg/dL (7.6-11.0); Carbon Dioxide 25.3 mmol/L (21.0-32.0); Chloride 104 mmol/L (98-108); Globulin 2.9 g/dL (2.2-4.2); Glucose 112 mg/dL (70-99); Potassium 3.9 mmol/L (3.3-5.1); Vitamin D,25 Hydroxy 24.1 ng/mL (30-100)
== END | disposition home or self-care (01) ==
LOC: LAB 15:42
PROVIDERS: PCP Internal Medicine; Referring Provider Internal Medicine Endocrinology, Diabetes & Metabolism; Visit Provider Internal Medicine Endocrinology, Diabetes & Metabolism
DX: M81.0 Age-related osteoporosis without current pathological fracture (principal); E55.9 Vitamin D deficiency, unspecified; E03.9 Hypothyroidism, unspecified
CPT/HCPCS: 36415; 80053; 82306

== ENCOUNTER → 2025-01-08 | Outpatient (CLI) | payer BC, SELFPAY ==
--- NOTE | 2025-01-08 13:46 | BI_ITS ---
EXAM: SCRN MAMM (CAD)W/DANIELLE BILAT DATE: 01/08/2025 CLINICAL HISTORY: F, Age 64 y/o , SCREENING Mother with breast cancer. TECHNIQUE: Procedure Code: [id number] Modality: MG Procedure: SCRN MAMM (CAD)W/DANIELLE BILAT COMPARISON: Prior exam(s) dated prior study dated December 16, 2021.. FINDINGS: TISSUE DENSITY: The breasts are extremely dense, which lowers the sensitivity of mammography. Bilateral Breast Mammographic Findings: No significant masses, calcifications or other abnormalities are identified. Stable small bilateral axillary lymph nodes. No suspicious masses, areas of developing architectural distortion, or suspicious calcifications. There has been no significant interval change. BI/SCRN MAMM (CAD)W/DANIELLE BILAT IMPRESSION: Stable bilateral screening mammogram. OVERALL FINAL ASSESSMENT BI-RADS 2: BENIGN RECOMMENDATION: Routine annual follow-up in 1 Year Additional Recommendation none A letter with findings and recommendations will be mailed to the patient. Reading Location: [facility]
--- OUTSIDE RECORDS SUMMARY | 2025-01-08 18:58 | XMS RPT_ITS | CCD ---
Author Organization [facility] Care Team Providers Care Exhaust Emissions Automotive Technician Name Role Phone Dr. Heather Rivera Primary Care Provider [phone] Dr. Heather Rivera Referring Provider [phone] Dr. Anupam Hanson Attending Provider [phone] Phuc Andrew Attending Provider 1([facility])[phone] Heather Rivera DO Unavailable [phone] Fast DO, Tracy A Unavailable Dr. Je Pichardo Unavailable Gerry GOLDBERG, Betty Unavailable Unavailable Rosa Motley RN Unavailable Unavailable Unavailable Unavailable Dr. Heather Rivera Primary Care Provider [phone] [phone] Elaine Lucas LPN Unavailable Unavailable Heather Rivera DO Unavailable [phone] Jed GOLDBERG Caryl Unavailable Unavailable Dr. Heather Rivera Primary Care Provider [phone] Dr. Anupam Hanson Attending Provider [phone])[phone] Heather Rivera Referring Provider Dr. Heather Rivera DO Primary Care Provider Dr. Phuc Andrew MD Attending Provider Dr. Anupam Hanson MD Attending Provider Dr. Anupam Hanson MD Referring Provider Dr. Heather Rivera DO Referring Provider 1([facility] [phone] Omari FONTANEZ-CRosa Attending Provider 1([facility])[phone] Dr. Heather Rivera DO Primary Care Physician Dr. Heather Rivera DO Referring Provider Dr. Anupam Hanson MD Attending Physician [phone] Rosa Salcido Attending Unavailable Nicole, Heather Primary Care Unavailable Nicole, Heather Referring Unavailable Nicole, Heather Attending Unavailable Nicole, Heather Referring Unavailable Nicole, Heather Primary Care Unavailable Nicole, Heather Primary Care Unavailable Anupam Hanson Attending Unavailable Nicole, Heather Referring Unavailable Phuc Andrew Attending Unavailable Nicole, Heather Primary Care Unavailable Anupam Hanson Attending Unavailable Anupam Hanson Referring Unavailable Nicole, Heather Primary Care Unavailable Anupam Hanson Attending Unavailable Anupam Hanson Referring Unavailable Nicole, Heather Primary Care Unavailable Medications Current Medications Medication Drug Class(es) Dates Sig (Normalized) Sig (Original) acetaminophen 325 mg / oxyCODONE hydrochloride 5 mg oral tablet (1 source) Opioid Agonist Start: 04-11-2021 take 1 tablet by mouth every six hours Oxycodone-Acetami nophen (Percocet) 5-325 mg tablet Active 1 TABLET PO EVERY 6 HOURS 12 April 11, 2021 6:32pm ondansetron 4 mg disintegrating oral tablet (1 source) Serotonin-3 Receptor Antagonist Start: 04-11-2021 take 4 mg by mouth every six hours Ondansetron Active 4 MG PO EVERY 6 HOURS April 11, 2021 6:33pm take with percocet Completed/Discontinued Medications Medication Drug Class(es) Dates Sig (Normalized) Sig (Original) alendronic acid 70 mg oral tablet (7 sources) Bisphosphonate Start: 06-13-2006 End: 01-29-2015 take 1 tablet by mouth every week FOSAMAX, 70MG (Oral Tablet) 1 (one) Tablet Q wk for 0 days Quantity: 12 {Tablet} Refills: 3 Ordered: 29-Jan-2015 Rosa Motley RN Start : 13-Jun-2006 End : 29-Jan-2015 Inactive Comments: faxed to [facility] per [facility] Comment on above: faxed to [facility] per [facility] budesonide 0.032 mg/actuat metered dose nasal spray (7 sources) Corticosteroid Start: 06-13-2006 End: 10-19-2008 RHINOCORT AQUA, 32MCG/ACT (Nasal Suspension) 2 (two) Suspension Daily for 0 days Refills: 0 Ordered: 13-Jun-2006 CHLOE Thompson LPN Start : 13-Jun-2006 End : 19-Oct-2008 Inactive cetirizine hydrochloride 10 mg oral tablet (7 sources) Histamine-1 Receptor Antagonist End: 01-29-2015 take 1 tablet by mouth once daily ZYRTEC, 10MG (Oral Tablet) 1 Tablet qd for 0 days Quantity: 30 {Tablet} Refills: 3 Ordered: 27-Oct-2008 Rosa Motley RN End : 29-Jan-2015 Discontinued Comments: This order discontinued per [facility]. Comment on above: This order discontin ued per [facility]. cholecalciferol 1.25 mg oral capsule (16 sources) Vitamin D Start: 12-12-2018 End: 11-21-2022 take 1 capsule by mouth every week Cholecalciferol (Vitamin D3) 1,250 mcg (50,000 unit) capsule Discontinued 37899 U PO EVERY WEEK 12 3 April 13, 2020 6:30pm November 21, 2022 8:32am 1 ml denosumab 60 mg/ml prefilled syringe (20 sources) RANK Ligand Inhibitor Start: 09-12-2022 End: 10-26-2023 Denosumab (Prolia) 60 mg/mL syringe Discontinued 60 mg SC every 6 months 1 0 March 01, 2023 9:07am October 26, 2023 9:44am Start: 08-15-2021 End: 09-04-2022 Denosumab (Prolia) 60 mg/mL syringe Discontinued 60 mg SC every 6 months 1 0 September 04, 2022 7:44am September 04, 2022 7:46am desloratadine 5 mg oral tablet (7 sources) Histamine-1 Receptor Antagonist Start: 06-13-2006 End: 10-19-2008 take 1 tablet by mouth once daily CLARINEX, 5MG (Oral Tablet) 1 (one) Tablet Daily for 0 days Refills: 0 Ordered: 13-Jun-2006 CHLOE Thompson LPN Start : 13-Jun-2006 End : 19-Oct-2008 Inactive omeprazole 40 mg delayed release oral capsule (7 sources) Proton Pump Inhibitor End: 01-29-2015 OMEPRAZOLE, 40MG (Oral Capsule Delayed Release) [address] qd for 0 days Quantity: 30 {Capsule_DR} Refills: 2 Ordered: 29-Jan-2015 Rosa Motley RN End : 29-Jan-2015 Inactive predniSONE 10 mg oral tablet (7 sources) Start: 09-13-2011 End: 01-29-2015 take 2 tablets by mouth once daily, then take 1 tablet by mouth once daily, then take 0.5 tablet by mouth once daily PREDNISONE, 10MG (Oral Tablet) Tablet uad for 0 days Refills: 0 Ordered: 29-Jan-2015 Rosa Motley RN Start : 13-Sep-2011 End : 29-Jan-2015 Inactive Comments: 2 a d for 3 d, 1 a d for 3d, 1/2 a d for 3 d Comment on above: 2 a d for 3 d, 1 a d for 3d, 1/2 a d for 3 d 28 actuat teriparatide 0.02 mg/actuat pen injector (20 sources) Parathyroid Hormone Analog Start: 12-16-2018 End: 09-04-2022 Teriparatide (Forteo) 20 mcg/dose (600mcg/2.4mL) pen injector Discontinued 20 ug SC DAILY 7.2 2 January 11, 2021 5:29pm September 04, 2022 7:44am she has copay card Forteo 600 MCG/2 .4ML Subcutaneous Solution 1 daily (600 MCG/2.4ML) Active Forteo 600 MCG/2 .4ML Subcutaneous Solution 1 daily (600 MCG/2.4ML) Active NEGATED: Highlighted row has not occurred!No Known Historical Medications (3 sources) No Known Histori rosi Medications Problems Active Problems Problem Classification Problem Date Documented Da te Episodic/Chronic Cancer of colon (11 sources) Malignant tumor of colon; Translations: [Colon cancer] 03-24-2019 Chronic Fracture of upper limb (8 sources) Fracture at wrist and/or hand level; Translations: [Fracture of unspecified carpal bone, unspecified wrist, initial encounter for closed fracture] 04-19-2021 Episodic Neoplasms of unspecified nature or uncertain behavior (11 sources) Neoplasm of skin; Translations: [Skin neoplasm] 03-20-2019 Episodic Comment on above: it bleed from pinch - i picked off scab - mole still there looks uniform but raised - she will follow and bc of location if gets chronically irriated or chg color shape or size will rto for removed Nutritional deficiencies (10 sources) Vitamin D deficiency; Translations: [Vitamin D deficiency, unspecified] Chronic Osteoporosis (20 sources) Osteoporosis; Translations: [Age-related osteoporosis without current pathological fracture] Onset: 12-17-2024 Chronic Comment on above: dx new 2019-- just riana uribe- managed by Anupam Hanson Other bone disease and musculoskeletal deformities (20 sources) Osteopenia; Translations: [Osteopenia] Resolved: 03-20-2019 03-20-2019 Episodic Other lower respiratory disease (20 sources) Cough; Translations: [Cough] Resolved: 11-05-2015 11-05-2015 Episodic Comment on above: ? inflammation or al lergy left over from URI--try primo prednisone. if not help then claritin, nasal spray and PPI and cxr pt to call in 1 week if not better Other lower respiratory disease (14 sources) Rib pain; Translations: [Rib pain] Resolved: 11-05-2015 11-05-2015 Episodic Comment on above: Pain in the right ri b likely secondary to a fracture.-Xray of right rib-Alleve 2 tablets twice daily with food-Take deep breaths.-If you have trouble breathing , worsening chest pain, severe pain in the ribs despite alleve please call us.54-year-old female presents with pain in the right rib after hitting a horse trailer.One week ago patient was walking with her hands above her head when she hit a metal bar coming out of the horse trailer. It initially was bruised and was hurting very bad. The patient went over to get some stuff and felt a pop and since then has been very painful. Yesterday patient got on her hands and knees and was hurting in her right rib so shedecided to come to the clinic.Denies breathing shallow, denies chest pain anywhere else, denies trouble with breathing, cough, fevers. Patient is very physical and works with horses. Other screening for suspected conditions (not mental disorders or infectious disease) (20 sources) Patient encounter status; Translations: [Encounter for screening for lipid disorder] Onset: 12-23-2024 03-20-2019 Episodic Comment on above: lipids done 12/07 Other upper respiratory disease (14 sources) Allergic rhinitis; Translations: [Allergic rhinitis] 03-20-2019 Chronic Residual codes; unclassified (11 sources) Body mass index 20-24 - normal; Translations: [BMI 21.0-21.9, adult] 03-20-2019 Episodic Residual codes; unclassified (11 sources) Influenza vaccination declined; Translations: [Influenza vaccination declined (Renamed from Refused influenza vaccine)] 03-20-2019 Episodic Residual codes; unclassified (11 sources) Non-smoker; Translations: [Non-smoker] 03-20-2019 Episodic Unclassified (20 sources) Unclassified (6 sources) Encounter for screening for malignant neoplasm of colon (Renamed from Special screening for malignant neoplasms, colon) Unclassified (6 sources) Encounter for screening for lipid disorder Unclassified (3 sources) Skin neoplasm Unclassified (3 sources) Varicose veins of legs Varicose veins of lower extremity (11 sources) Varicose veins of bilateral lower limbs; Translations: [Varicose veins of legs] 03-20-2019 Episodic Comment on above: may get second opini on - i rec dr paulino joseph-- she will look at ins plan to see if he is on it -- then may call if needs official referralh/o of vascular proced but not very effective adn ins limited to cover-- Past or Other Problems Problem Classification Problem Date Documented Da te Episodic/Chronic Unclassified (14 sources) Unspecified Diagnosis 03-20-2019 Unclassified (3 sources) Colon cancer Unclassified (3 sources) BMI 21.0-21.9, adult Unclassified (3 sources) Non-smoker Unclassified (3 sources) Influenza vaccination declined (Renamed from Refused influenza vaccine) Unclassified (3 sources) Osteoporosis, idiopathic Unclassified (3 sources) Encntr for general adult medical exam w/o abnormal findings Unclassified (3 sources) Encounter for screening mammogram for breast cancer (Renamed from Encounter for screening mammogram for malignant neoplasm of breast) Results Test Name Value Interpretation Reference Range Facility Comprehensive Metabolic Prof rolando 12-02-2024 Albumin [Mass/Vol] 4.4 g/dL Normal 3.4-4.8 [facility] Comment on above: Performed By: #### L 506.1001, L500.4050 #### [facility] [address] [place], [address] Albumin/Globulin [Mass ratio] 1.5 {ratio} Normal 0.9-2.4 [facility] Comment on above: Performed By: #### L 506.1001, [id number] #### [facility] [address] [place], [address] ALK PHOS 43 U/L Normal 35-104 [facility] Comment on above: Performed By: #### L 506.1001, [id number] #### [facility] [address] [place], [address] ALT [Catalytic activity/Vol] 24 U/L Normal <=34 [facility] Comment on above: Performed By: #### L 506.1001, [id number] #### [facility] [address] [place], [address] AST [Catalytic activity/Vol] 28 U/L Normal <=31 [facility] Comment on above: Performed By: #### L 506.1001, [id number] #### [facility] [address] [place], [address] Bilirubin [Mass/Vol] 0.37 mg/dL Normal 0.00-1.30 [facility] Comment on above: Performed By: #### L 506.1001, [id number] #### [facility] [address] [place], [address] BUN/CRE 18.5 RATIO Normal 10-20 [facility] Comment on above: Performed By: #### L 506.1001, [id number] #### [facility] [address] [place], [address] Calcium [Mass/Vol] 9.6 mg/dL Normal 7.6-11.0 [facility] Comment on above: Performed By: #### L 506.1001, [id number] #### [facility] [address] [place], [address] Chloride [Moles/Vol] 104 mmol/L Normal 98-108 [facility] Comment on above: Performed By: #### L 506.1001, [id number] #### [facility] [address] [place], [address] CO2 [Moles/Vol] 25.3 mmol/L Normal 21.0-32.0 [facility] Comment on above: Performed By: #### L 506.1001, [id number] #### [facility] [address] [place], [address] Creatinine [Mass/Vol] 0.84 mg/dL Normal 0.70-1.20 [facility] Comment on above: Performed By: #### L 506.1001, [id number] #### [facility] [address] [place], [address] GAP 11 Normal 5-15 [facility] Comment on above: Performed By: #### L 506.1001, [id number] #### [facility] [address] [place], [address] GFR/1.73 sq M.predicted among non-blacks MDRD (S/P/Bld) [Vol rate/Area] 79 mL/min/{1.73_m2} Normal >60 [facility] Comment on above: Result Comment: mL/m in/1.73m2 CKD-EPI Creatinine Equation (2020) Performed By: #### L 506.1001, [id number] #### [facility] [address] [place], [address] Globulin (S) [Mass/Vol] 2.9 g/dL Normal 2.2-4.2 [facility] Comment on above: Performed By: #### L 506.1001, [id number] #### [facility] [address] [place], [address] Glucose [Mass/Vol] 112 mg/dL High 70-99 [facility] Comment on above: Performed By: #### L 506.1001, [id number] #### [facility] [address] [place], [address] Potassium [Moles/Vol] 3.9 mmol/L Normal 3.3-5.1 [facility] Comment on above: Performed By: #### L 506.1001, [id number] #### [facility] [address] [place], [address] Sodium [Moles/Vol] 140 mmol/L Normal 133-145 [facility] Comment on above: Performed By: #### L 506.1001, [id number] #### [facility] [address] [place], [address] T PROT 7.3 g/dL Normal 5.9-8.4 [facility] Comment on above: Performed By: #### L 506.1001, [id number] #### [facility] [address] [place], [address] Urea nitrogen [Mass/Vol] 16 mg/dL Normal 4-19 [facility] Comment on above: Performed By: #### L 506.1001, [id number] #### [facility] [address] [place], [address] Vitamin D,25 Hydroxyon 12-02 Vitamin D 25-OH 24.1 ng/mL Low 30-100 [facility] Comment on above: Result Comment: Deanne min D Status Deficiency: <20 ng/mL (50nmol/L) Insufficiency: 20-30 ng/mL (50-75 nmol/L) Sufficiency: 30-100 ng/mL (75-250 nmol/L) Toxicity: >100 ng/mL (>250 nmol/L) Performed By: #### L 506.1001, [id number] #### [facility] [address] [place], [address] Endocrinology Visit Reporton 11-21-2024 Endocrinology Visit Report [facility] [address] [place] [address] OFFICE VISIT Date of Service: 11/21/24 MR#: [id number] Acct: [id number] Name: ALEXA MINA Rep #: [id number] : 1960 Provider: Salomón Vela Age/Sex: 64/F [place] [facility] [place]: Signed Intake Vital Signs 11/22/23 08:34 04/02/24 13:16 11/21/24 10:05 Height 5 ft 6 in 5 ft 6 in 5 ft 6 in Weight: 143 lb 4 oz BMI 23.1 BP 118/75 Blood Pressure Location Lt brachial Pulse 74 Pulse Source Monitor Pulse Oximetry (%) 96 Oxygen Delivery Method room air Intake Visit Reasons: 1 Y FU Chief Complaint: Bone Is patient in pain?: No Allergies No Known Allergies Allergy (Verified 11/21/24 10:12) Medications ???Medication ???Instructions ???Recorded ???Confirmed ???Type denosumab 60 mg/mL subcutaneous 60 mg subcut [id number] #1 mL 11/21/24 Rx syringe (Prolia) PFSH Medical History Vitamin deficiency Osteopenia Heart murmur Bone fracture Surgical History History of Family History Mother Breast cancer Social History Smoking Status: Never smoker alcohol intake: current alcohol intake frequency: a few times a week what type of physical activity do you participate in: weight training frequency: 3-4 times per week HPI HPI Chief Complaint: Bone Details: ALEXA MINA is a 64 F who presents to the office today for follow up. She has received course of Boniva and course of Forteo. She is now on Prolia. She is tolerating it well. She is due for labs and her injection in January. She is active, no complaints. Her last fracture was her wrist in 2021. She changed insurance and now has a high deductible. ROS Const Constitutional: No fatigue, weight change or change in appetite Eyes Eyes: No change in vision ENT ENT: No dizziness/vertigo or difficulty swallowing Cardio Cardiology: No chest pain at rest, chest pain with exertion, shortness of breath or palpitations Musc Musculoskeletal: No abnormal gait, joint pain, numbness or tingling Neuro Neurology: No abnormal gait, memory loss, numbness or tingling Psych Psychiatric: No change in appetite, No memory loss and No Thoughts of harming yourself/Others Resp Respiratory: No cough, chest congestion or shortness of breath Gastro GI: No abdominal pain, constipation, diarrhea or difficulty swallowing Genitourinary-Female : No burning urination Skin Skin: No itchy eyes or wounds Endo Endocrine: No fatigue or weight change Aller/Imm Allergy/Immunologic: No itchy eyes Exam Const General: cooperative, healthy appearing, comfortable, no acute distress, well developed and not cushingoid Nutritional Appearance: well nourished Orientation: alert, awake and oriented x3 HENMT Head: normal to inspection Ears: hearing grossly normal bilaterally Nose: external nose normal Mouth: oral mucosae normal Eyes General: appearance normal, both eyes and all related structures Alignment and Position: alignment normal Periorbital: periorbital findings normal Eyelids: eyelids normal Conjunctivae: conjunctivae normal Neck Neck: normal visual inspection Neck mass: No Thyroid: thyroid normal Lymphatic: no lymphadenopathy noted Chest Chest palpation inspection: normal inspection of the chest Resp Effort Inspection: normal respiratory effort, able to speak in complete sentences, symmetric chest movement, no audible wheezes and no cough Auscultation: Bilateral: Clear to Auscultation Cardio Rate: regular rate Rhythm: regular rhythm Skin General: no rashes or lesions noted Neuro General: patient alert, patient awake and patient oriented x3 Cranial Nerves: CN's II-XI intact bilaterally Cognition: normal cognition Speech: speech normal Gait: normal gait Motor: muscle tone normal throughout Extrem General: no edema Psych Appearance: grossly normal Mental Status: mental status grossly normal Mood: congruent mood Affect: normal affect Speech and Movement: speech and movement normal Attitude: cooperative Thought Process: normal Thought Content: normal Judgment: judgment good Assessment and Plan Assessment and Plan (1) Osteoporosis: Status: Chronic Qualifiers: Osteoporosis type: age-related Presence of current pathological fracture: without current pathological fracture Qualified Code(s): M81.0 - Age-related osteoporosis without current pathological fracture Plan: Continue Prolia Maintain normal calcium and vitamin D levels. Avoid falls. Exercise to maintain (more content not included)... Normal [facility] Office Visit Reporton 2024 Office Visit Report [facility] [address] [place] [address] OFFICE VISIT Date of Service: 07/16/24 MR#: [id number] Acct: [id number] Patient: ALEXA MINA Rep #: [id number] : 1960 Provider: YADIRA gerard Age/Sex: 64/F [place] [facility] [place]: Signed Intake Vital Signs 04/02/24 13:16 Height 5 ft 6 in Intake Visit Reasons: Prolia- B B Chief Complaint: No acute concerns Allergies No Known Allergies Allergy (Verified 11/21/22 08:31) Office Procedures Injections Procedure performed by: Jannette Perry Lot number: [id number] Plant Director: [employer] date: 10/19/26 Dose of injection: 60mg/1mL Site of injection: Sub-Q Medication Given: Yes Is this a patient provided medication?: No Office Meds Prolia 60 mg/mL subcutaneous syringe Performing Provider: YADIRA Skelton Performing Location: [facility] Administered by: Jannette Perry on 07/16/24 16:40 Dose Route Admin Location Dispensed Lot Number Expiration Date [facility] Man ufacturer 60 mg subcut Lt arm 1 mL [id number] 10/19/26 45562-276-08 [employer] Assessment and Plan Assessment and Plan (1) Osteoporosis: Status: Chronic Qualifiers: Osteoporosis type: age-related Presence of current pathological fracture: without current pathological fracture Qualified Code(s): M81.0 - Age-related osteoporosis without current pathological fracture Orders: Orders Prolia Injection 07/16/24 M81.0 - Age-related osteoporosis without current pathological fracture 07/21/24 1259 Date Rosa Salcido CRA OFFICER-C Kirilligner Signature: Date (if applicable) CC: Normal [facility] Bone density reportOrdered B y: Alexandra Moulton on 06-24-2024 Study report Skeletal system DXA [facility] Imaging Services [address] [place], [place] [id number] Dexa Bone Density Study MR#: [id number] Acct: [id number] Name: ALEXA MINA Rep #: [id number] : 1960 F 64 From: Glenroy Moulton DO PCP: Dr. Heather Rivera, Status: RE G CLI Study:Dexa Bone Density Study Date of Exam: 06/24/24 Exam# [id number] Ordering Dr: Jarret Hanson i, MD PROCEDURE: DEXA BONE DENSITY STUDY 06/24/2024 REASON FOR EXAM: COMPARE F, age 64 y/o . Postmenopausal. TECHNIQUE: DEXA scan of sites with data reported below. Scanner utilized: [employer] [facility] Position[facility] COMPARISON: DEXA examination dated 04/20/2021 FINDINGS: BMD and T-SCORES Lumbar spine: 0.879 g/cm2, T-score -1.5 Levels: L1 through L4 Change from prior: Increase of 6.8%. Left femoral neck: 0.600 g/cm2, T-score -2.2 Left total hip: 0.757 g/cm2, T-score -1.5 Change from prior: Significant increase of 4.9%. Right femoral neck: 0.632 g/cm2, T-score -2.0 Right total hip: 0.750 g/cm2, T-score -1.6 Change from prior: Increase of 2.2%. The World Health Organization has defined the following categories based on bonedensity: Normal bone density: T-score equal to or greater than -1.0 Osteopenia: T-score between -1.0 and -2.5 Osteoporosis: T-score equal to or less than -2.5 FRAX (or Comparable) Fracture Risk Assessment: 10 Year Probability of Fracture: Major Osteoporotic Fracture: 32% Hip Fracture: 3.2% (Note: FRAX is not to be reported in setting of normal range bone density, osteoporosis on DEXA, known history of osteoporosis, prior osteoporotic hip or vertebral fracture, or for any patient undergoing pharmacological treatment for bone loss.) The National Osteoporosis Foundation (NOF) recommends pharmacological treatment for patients with a FRAX 10-year risk of 3% or higher for a hip fracture, or 20% or higher for a major osteoporotic fracture, to prevent osteoporosis and reduce fracture risk. The patient does meet the pharmacological treatment recommendations for prevention of osteoporosis. BD/Dexa Bone Density Study IMPRESSION: OSTEOPENIA. Recommend follow-up as clinically warranted. Reading Location: [id number] CC: Dr. Heather Rivera DO; Dr. Anupam Hanson MD ~ Refund Specialist: Signed [facility] Dexa Bone Density Studyon Dexa Bone Density Study [facility] Imaging Services [address] [place] [id number] Dexa Bone Density Study MR#: [id number] Acct: [id number] Name: ALEXA MINA Rep #: [id number] : 1960 F 64 From: Alexandra Read PCP: Dr. Heather Rivera DO Status: REG CLI Study: Dexa Bone Density Study Date of Exam: 06/24/24 Exam# [id number] Ordering Dr: Anupam Hanson MD PROCEDURE: DEXA BONE DENSITY STUDY 06/24/2024 REASON FOR EXAM: COMPARE F, age 64 y/o . Postmenopausal. TECHNIQUE: DEXA scan of sites with data reported below. Scanner utilized: [employer] REFERENCE LINKS: [facility] Adult Positions COMPARISON: DEXA examination dated 04/20/2021 FINDINGS: BMD and T-SCORES Lumbar spine: 0.879 g/cm2, T-score -1.5 Levels: L1 through L4 Change from prior: Increase of 6.8%. Left femoral neck: 0.600 g/cm2, T-score -2.2 Left total hip: 0.757 g/cm2, T-score -1.5 Change from prior: Significant increase of 4.9%. Right femoral neck: 0.632 g/cm2, T-score -2.0 Right total hip: 0.750 g/cm2, T-score -1.6 Change from prior: Increase of 2.2%. The World Health Organization has defined the following categories based on bone density: Normal bone density: T-score equal to or greater than -1.0 Osteopenia: T-score between -1.0 and -2.5 Osteoporosis: T-score equal to or less than -2.5 FRAX (or Comparable) Fracture Risk Assessment: 10 Year Probability of Fracture: Major Osteoporotic Fracture: 32% Hip Fracture: 3.2% (Note: FRAX is not to be reported in setting of normal range bone density, osteoporosis on DEXA, known history of osteoporosis, prior osteoporotic hip or vertebral fracture, or for any patient undergoing pharmacological treatment for bone loss.) The National Osteoporosis Foundation (NOF) recommends pharmacological treatment for patients with a FRAX 10-year risk of 3% or higher for a hip fracture, or 20% or higher for a major osteoporotic fracture, to prevent osteoporosis and reduce fracture risk. The patient does meet the pharmacological treatment recommendations for prevention of osteoporosis. BD/Dexa Bone Density Study IMPRESSION: OSTEOPENIA. Recommend follow-up as clinically warranted. Reading Location: [id number] CC: Dr. Heather Rivera DO; Dr. Anupam Hanson MD Refund Specialist: Signed Normal [facility] Chest PA and Lateralon 04-02 Chest PA and Lateral [facility] Imaging Services [address] [place] [id number] Chest PA and Lateral MR#: [id number] Acct: [id number] Name: ALEXA MINA Rep #: [id number] : 1960 F 63 From: Meagan pederson MD PCP: Dr. Heather Rivera DO Status: DEP AMB Study: Chest PA and Lateral Date of Exam: 04/02/24 Exam# [id number] Ordering Dr: Heather Rivera DO PROCEDURE: CHEST PA AND LATERAL REASON FOR EXAM: Chronic cough. TECHNIQUE: Frontal and lateral views of the chest. COMPARISON: None. FINDINGS: The heart size is normal. The mediastinal contour is unremarkable. No acute consolidation, pleural effusion or pneumothorax. Mild scoliosis. RAD/Chest PA and Lateral IMPRESSION: No acute consolidation, pleural effusion or pneumothorax. Reading Location: [facility] CC: Dr. Heather Rivera DO Refund Specialist: Signed Normal [facility] Basophil percentageOrdered B y: Anupam Hanson on 12-11-2022 Bilirubin [Mass/Vol] 0.20 mg/dL 0.20-1.00 [facility] Comment on above: For patients on eltr ombopag therapy, use of Dimension [place] TBIL is not recommended. Chloride [Moles/Vol] 107 mmol/L 98-107 [facility] Glucose [Mass/Vol] 104 mg/dL 74-106 [facility] Comment on above: Fasting Glucose resu lt from 100 to 125 mg/dL suggests IMPAIRED HOMEOSTASIS per A.D.A. criteria. Potassium [Moles/Vol] 4.4 mmol/L 3.5-5.1 [facility] Protein [Mass/Vol] 7.3 g/dL 6.4-8.2 [facility] Sodium [Moles/Vol] 140 mmol/L 136-145 [facility] Laboratory - Chemistry and C hemistry - challengeOrdered By: Anupam Hanson on 12-11-2022 ALP [Catalytic activity/Vol] 43 U/L 45-117 [facility] ALT [Catalytic activity/Vol] 24 U/L 13-56 [facility] CO2 [Moles/Vol] 30.0 mmol/L 21.0-32.0 [facility] Globulin (S) [Mass/Vol] 3.7 g/dL 2.2-4.2 [facility] Urea nitrogen/Creatinine [Mass ratio] 18.6 mg/mg 10-20 [facility] No Panel InformationOrdered By: Anupam Hanson on 12-11-2022 Estimated GFR (MDRD) Amer 86 mL/min >60 [facility] Comment on above: GFR Calc Estimated GFR (MDRD) Non-Af Amer 71 mL/min >60 [facility] Comment on above: Non- GFR Calc Vitamin D 25-Hydroxy 33.6 ng/mL [facility] Comment on above: Vitamin D 25(OH) Sta tus Range Deficiency <20 ng/mL (50nmol/L) Insufficiency 20 - 30 ng/mL (50 - 75 nmol/L) Sufficiency 30 - 100 ng/mL (75 - 250 nmol/L) Toxicity >100 ng/mL (>250 nmol/L) Serum or plasma albumin nadiya urement (mass/volume)Ordered By: Anupam Hanson on 12-11-2022 Albumin [Mass/Vol] 3.6 g/dL 3.2-5.0 [facility] Serum or plasma albumin/glob ulin mass ratioOrdered By: Anupam Hanson on 12-11-2022 Albumin/Globulin [Mass ratio] 1.0 {ratio} 0.9-2.4 [facility] Serum or plasma calcium nadiya urement (mass/volume)Ordered By: Anupam Hanson on 12-11-2022 Calcium [Mass/Vol] 8.8 mg/dL 8.5-10.1 [facility] Serum or plasma creatinine m easurement (mass/volume)Ordered By: Anupam Hanson on 12-11-2022 Creatinine [Mass/Vol] 0.86 mg/dL 0.55-1.02 [facility] Comment on above: The validity of the calculated GFR & GFRAA in patients over 70 years has not been determined. Clinical correlation is essential. Serum or plasma urea nitroge n measurement (mass/volume)Ordered By: Anupam Hanson on 12-11-2022 Urea nitrogen [Mass/Vol] 16 mg/dL 7-18 [facility] Thin prep Papanicolaou smear with manual screeningOrdered By: Anupam Hanson on 12-11-2022 Thin prep Papanicolaou smear with manual screening 19 U/L 15-37 [facility] Thin prep Papanicolaou smear with manual screening 3 5-15 [facility] Vital Signs Date Time Vital Sign Value Performing Clinician Facility 11-21-2024 10:05-0400 Body height 167.[address] Heather Rivera DO Work Phone: [facility] 11-21-2024 10:05-0400 Body mass index (BMI) [Ratio] 23.1 kg/m2 Dr. Heather Rivera DO Work Phone: [facility] 11-21-2024 10:05-0400 Body weight 64.[address] Heather Rivera DO Work Phone: [facility] 11-21-2024 10:05-0400 Diastolic blood pressure 75 mm[Hg] Dr. Heather Rivera DO Work Phone: [facility] 11-21-2024 10:05-0400 Heart rate 74 /min Dr. Heather Rivera DO Work Phone: [facility] 11-21-2024 10:05-0400 SaO2% (BldA) [Mass fraction] 96 % Dr. Heather Rivera DO Work Phone: [facility] 11-21-2024 10:05-0400 Systolic blood pressure 118 mm[Hg] Dr. Heather Rivera DO Work Phone: [facility] 04-02-2024 13:16-0500 Body height 167.[address] Heather Rivera DO Work Phone: [facility] 11-21-2022 08:27-0400 Body height 167.[address] Heather Rivera Work Phone: [facility] 11-21-2022 08:27-0400 Body mass index (BMI) [Ratio] 21.8 kg/m2 Dr. Heather Rivera Work Phone: [facility] 11-21-2022 08:27-0400 Body temperature 97.8 [degF] Dr. Heather Rivera Work Phone: [facility] 11-21-2022 08:27-0400 Body weight 61.[address] Heather Rivera Work Phone: [facility] 11-21-2022 08:27-0400 Diastolic blood pressure 64 mm[Hg] Dr. Heather Rivera Work Phone: [facility] 11-21-2022 08:27-0400 Heart rate 70 /min Dr. Heather Rivera Work Phone: [facility] 11-21-2022 08:27-0400 Respiratory rate 16 /min Dr. Heather Rivera Work Phone: [facility] 11-21-2022 08:27-0400 SaO2% (BldA) [Mass fraction] 99 % Dr. Heather Rivera Work Phone: [facility] 11-21-2022 08:27-0400 Systolic blood pressure 100 mm[Hg] Dr. Heather Rivera Work Phone: [facility] 03-06-2022 14:42-0500 Body height 167.64 cm [facility] 03-06-2022 14:42-0500 Body mass index (BMI) [Ratio] 21.6 kg/m2 [facility] 03-06-2022 14:42-0500 Body temperature 97.7 [degF] [facility] 03-06-2022 14:42-0500 Body weight 60.78 kg [facility] 03-06-2022 14:42-0500 Diastolic blood pressure 74 mm[Hg] [facility] 03-06-2022 14:42-0500 Heart rate 72 /min [facility] 03-06-2022 14:42-0500 Respiratory rate 16 /min [facility] 03-06-2022 14:42-0500 SaO2% (BldA) [Mass fraction] 99 % [facility] 03-06-2022 14:42-0500 Systolic blood pressure 114 mm[Hg] [facility] 09-05-2021 14:37-0400 Body height 167.[address] Heather Rivera Work Phone: [facility] Work Phone: 09-05-2021 14:37-0400 Body mass index (BMI) [Ratio] 21.9 kg/m2 Dr. Heather Rivera Work Phone: [facility] Work Phone: 09-05-2021 14:37-0400 Body temperature 97.3 [degF] Dr. Heather Rivera Work Phone: [facility] Work Phone: 09-05-2021 14:37-0400 Body weight 61.[address] Heather Rivrea Work Phone: [facility] Work Phone: 09-05-2021 14:37-0400 Diastolic blood pressure 75 mm[Hg] Dr. Heather Rivera Work Phone: [facility] Work Phone: 09-05-2021 14:37-0400 Heart rate 75 /min Dr. Heather Rievra Work Phone: [facility] Work Phone: 09-05-2021 14:37-0400 Respiratory rate 16 /min Dr. Heather Rivera Work Phone: [facility] Work Phone: 09-05-2021 14:37-0400 SaO2% (BldA) [Mass fraction] 95 % Dr. Heather Rivera Work Phone: [facility] Work Phone: 09-05-2021 14:37-0400 Systolic blood pressure 117 mm[Hg] Dr. Heather Rivera Work Phone: [facility] Work Phone: 04-20-2021 10:03-0500 Body height 167.[address] Heather Rivera Work Phone: [facility] Work Phone: 04-11-2021 16:57-0500 Diastolic blood pressure 69 mm[Hg] Dr. Heather Rivera Work Phone: [facility] Work Phone: 04-11-2021 16:57-0500 Heart rate 69 /min Dr. Heather Rivera Work Phone: [facility] Work Phone: 04-11-2021 16:57-0500 Respiratory rate 19 /min Dr. Heather Rivera Work Phone: [facility] Work Phone: 04-11-2021 16:57-0500 SaO2% (BldA) [Mass fraction] 99 % Dr. Heather Rivera Work Phone: [facility] Work Phone: 04-11-2021 16:57-0500 Systolic blood pressure 107 mm[Hg] Dr. Heather Rivera Work Phone: [facility] Work Phone: 04-11-2021 15:18-0500 Body mass index (BMI) [Ratio] 21.9 kg/m2 Dr. Heather Rivera Work Phone: [facility] Work Phone: 04-11-2021 15:18-0500 Body temperature 96.8 [degF] Dr. Heather Rivera Work Phone: [facility] Work Phone: 04-11-2021 15:18-0500 Body weight 61.[address] Heather Rivera Work Phone: [facility] Work Phone: 04-11-2021 09:34-0500 Body mass index (BMI) [Ratio] 22.5 kg/m2 Dr. Heather Rivera Work Phone: [facility] Work Phone: 04-11-2021 09:34-0500 Body temperature 97.1 [degF] Dr. Heather Rivera Work Phone: [facility] Work Phone: 04-11-2021 09:34-0500 Body weight 63.[address] Heather Rivera Work Phone: [facility] Work Phone: 04-11-2021 09:34-0500 Diastolic blood pressure 70 mm[Hg] Dr. Heather Rivera Work Phone: [facility] Work Phone: 04-11-2021 09:34-0500 Heart rate 83 /min Dr. Heather Rivera Work Phone: [facility] Work Phone: 04-11-2021 09:34-0500 Respiratory rate 18 /min Dr. Heather Rivera Work Phone: [facility] Work Phone: 04-11-2021 09:34-0500 SaO2% (BldA) [Mass fraction] 100 % Dr. Heather Rivera Work Phone: [facility] Work Phone: 04-11-2021 09:34-0500 Systolic blood pressure 100 mm[Hg] Dr. Heather Rivera Work Phone: [facility] Work Phone: 03-20-2019 11:07-0500 Body height 170.18 cm Betty Garrett [facility]; [facility] Work Phone: 03-20-2019 11:07-0500 Body mass index (BMI) [Ratio] 21.61 kg/m2 [facility]; [facility] Work Phone: 03-20-2019 11:07-0500 Body surface area Derived from formula 1.73 m2 Betty Garrett [facility]; [facility] Work Phone: 03-20-2019 11:07-0500 Body temperature 97.8 [degF] [facility] Work Phone: Comment on above: Method: Temporal 03-20-2019 11:07-0500 Body weight 62.6 kg Betty Garrett CMA [facility]; [facility] Work Phone: 03-20-2019 11:07-0500 Diastolic blood pressure 72 mm[Hg] Betty Garrett CMA [facility]; [facility] Work Phone: Comment on above: Patient Position: Sitting; Cuff Location : Left Arm; Cuff Size: Standard 03-20-2019 11:07-0500 Heart rate 73 /min Betty Garrett SOCIAL MEDIA DIRECTOR [facility]; [facility] Work Phone: Comment on above: Pattern: Regular 03-20-2019 11:07-0500 Respiratory rate 16 /min Betty Garrett CMA [facility]; [facility] Work Phone: Comment on above: Pattern: Unlabored 03-20-2019 11:07-0500 SaO2% (BldA) [Mass fraction] 97 % Betty Garrett [facility]; [facility] Work Phone: Comment on above: Room air 03-20-2019 11:07-0500 Systolic blood pressure 130 mm[Hg] Betty Garrett CMA [facility]; [facility] Work Phone: Comment on above: Patient Position: Sitting; Cuff Location : Left Arm; Cuff Size: Standard 11-05-2015 10:35-0400 Body height 170.18 cm Tawnya Santiago RN [facility]; [facility] Work Phone: 11-05-2015 10:35-0400 Body mass index (BMI) [Ratio] 21.77 kg/m2 Tawnya Santiago RN [facility]; [facility] Work Phone: 11-05-2015 10:35-0400 Body surface area Derived from formula 1.73 m2 Tawnya Santiago RN [facility]; [facility] Work Phone: 11-05-2015 10:35-0400 Body weight 63.05 kg Tawnya Santiago RN [facility]; [facility] Work Phone: 11-05-2015 10:35-0400 Diastolic blood pressure 70 mm[Hg] Tawnya Santiago RN [facility]; [facility] Work Phone: Comment on above: Patient Position: Sitting; Cuff Location : Left Arm; Cuff Size: Standard 11-05-2015 10:35-0400 Heart rate 76 /min Tawnya Santiago RN [facility]; [facility] Work Phone: Comment on above: Pattern: Regular 11-05-2015 10:35-0400 Respiratory rate 18 /min Tawnya Santiago RN [facility]; [facility] Work Phone: Comment on above: Pattern: Unlabored 11-05-2015 10:35-0400 SaO2% (BldA) [Mass fraction] 98 % Tawnya Santiago RN [facility]; [facility] Work Phone: Comment on above: Room air 11-05-2015 10:35-0400 Systolic blood pressure 110 mm[Hg] Tawnya Santiago RN [facility]; [facility] Work Phone: Comment on above: Patient Position: Sitting; Cuff Location : Left Arm; Cuff Size: Standard 01-29-2015 11:35-0500 Body height 170.18 cm Rosa Motley RN [facility]; [facility] Work Phone: 01-29-2015 11:35-0500 Body mass index (BMI) [Ratio] 21.77 kg/m2 Rosa Motley RN [facility]; [facility] Work Phone: 01-29-2015 11:35-0500 Body surface area Derived from formula 1.73 m2 Rosa Motley RN [facility]; [facility] Work Phone: 01-29-2015 11:35-0500 Body temperature 98.6 [degF] Rosa Motley RN [facility]; [facility] Work Phone: Comment on above: Method: Temporal 01-29-2015 11:35-0500 Body weight 63.05 kg Rosa Motley RN [facility]; [facility] Work Phone: 01-29-2015 11:35-0500 Diastolic blood pressure 68 mm[Hg] Rosa Motley RN [facility]; [facility] Work Phone: Comment on above: Patient Position: Sitting; Cuff Location : Left Arm; Cuff Size: Standard 01-29-2015 11:35-0500 Heart rate 83 /min Rosa Motley RN [facility]; [facility] Work Phone: Comment on above: Pattern: Regular 01-29-2015 11:35-0500 Respiratory rate 16 /min Rosa Motley RN [facility]; [facility] Work Phone: Comment on above: Pattern: Unlabored 01-29-2015 11:35-0500 SaO2% (BldA) [Mass fraction] 97 % Rosa Motley RN [facility]; [facility] Work Phone: Comment on above: Room air 01-29-2015 11:35-0500 Systolic blood pressure 102 mm[Hg] Rosa Motley RN [facility]; [facility] Work Phone: Comment on above: Patient Position: Sitting; Cuff Location : Left Arm; Cuff Size: Standard 10-19-2008 16:26-0400 Body height 0 cm CHLOE Thompson LPN [facility]; [facility] Work Phone: 10-19-2008 16:26-0400 Body temperature 98.2 [degF] CHLOE Thompson LPN [facility]; [facility] Work Phone: Comment on above: Method: Oral 10-19-2008 16:26-0400 Body weight 0 kg CHLOE Thompson LPN [facility]; [facility] Work Phone: 10-19-2008 16:26-0400 Diastolic blood pressure 68 mm[Hg] CHLOE Thompson LPN [facility]; [facility] Work Phone: Comment on above: Patient Position: Sitting; Cuff Location : Left Arm; Cuff Size: Standard 10-19-2008 16:26-0400 Head Occipital-frontal circumference 0 cm CHLOE Thompson LPN [facility]; [facility] Work Phone: 10-19-2008 16:26-0400 Heart rate 74 /min CHLOE Thompson LPN [facility]; [facility] Work Phone: Comment on above: Pattern: Regular 10-19-2008 16:26-0400 Respiratory rate 16 /min CHLOE Thompson TRANSITION OF CARE SPECIALIST [facility]; [facility] Work Phone: Comment on above: Pattern: Unlabored 10-19-2008 16:26-0400 Systolic blood pressure 100 mm[Hg] CHLOE Thompson LPN [facility]; [facility] Work Phone: Comment on above: Patient Position: Sitting; Cuff Location : Left Arm; Cuff Size: Standard 06-13-2006 10:15-0400 Body height 0 cm Heather Nicole DO Work Phone: [facility]; [facility] Work Phone: 06-13-2006 10:15-0400 Body temperature 98.3 [degF] Heather Nicole DO Work Phone: [facility]; [facility] Work Phone: Comment on above: Method: Oral 06-13-2006 10:15-0400 Body weight 0 kg Heather Nicole DO Work Phone: [facility]; [facility] Work Phone: 06-13-2006 10:15-0400 Diastolic blood pressure 63 mm[Hg] Heather Nicole DO Work Phone: [facility]; [facility] Work Phone: Comment on above: Patient Position: Sitting; Cuff Location : Left Arm; Cuff Size: Standard 06-13-2006 10:150400 Head Occipital-frontal circumference 0 cm Heather Nicole DO Work Phone: [facility]; [facility] Work Phone: 06-13-2006 10:15-0400 Heart rate 78 /min Heather Nicole DO Work Phone: [facility]; [facility] Work Phone: Comment on above: Pattern: Regular 06-13-2006 10:15-0400 Respiratory rate 17 /min Heather Nicole DO Work Phone: [facility]; [facility] Work Phone: Comment on above: Pattern: Unlabored 06-13-2006 10:15-0400 Systolic blood pressure 100 mm[Hg] Heather Rivera DO Work Phone: [facility]; [facility] Work Phone: Comment on above: Patient Position: Sitting; Cuff Location : Left Arm; Cuff Size: Standard Encounters Encounter Date Encounter Type Care Provider Facility Start: 01-08-2025 ambulatory Heatherluan Mojica y:[facility] Start: 12-02-2024 End: 12-02-[address] [facility] Facility:[facility] Start: 11-21-2024 End: 11-21-[address] Anupam Hanson MD -[facility] Work Phone: Start: 11-21-2024 End: 11-21-[address] Heather Rivera DO Work Phone: -[facility] Start: 07-16-2024 End: 07-16-2024 Patient encounter procedure Rosa Salcido NP-C -[facility] Work Phone: Start: 07-16-2024 End: 07-16-[address] Heather Rivera DO Work Phone: [facility] Work Phone: Start: 06-24-2024 End: 06-24-[address] Heather Rivera DO Work Phone: [facility] Work Phone: Start: 06-24-2024 End: 06-24-[address] Anupam Hanson MD -[facility] Work Phone: Start: 06-24-2024 End: 06-24-[address] [facility] Facility:[facility] Start: 04-02-2024 End: 04-02-[address] Phuc Andrew MD -[facility] Start: 04-02-2024 End: 04-02-2024 ambulatory Phuc Andrew Facility:[facility] Start: 12-11-2022 End: 12-11-[address] Heather Rivera Work Phone: [facility] Work Phone: Start: 12-11-2022 End: 12-11-[address] Heather Rivera Work Phone: [facility]-Laboratory Work Phone: Start: 11-21-2022 End: 11-21-[address] Heather Rivera Work Phone: [facility] Work Phone: Start: 10-16-2022 End: 10-16-[address] Heather Rivera Work Phone: [facility] Work Phone: Start: 03-06-2022 End: 03-06-2022 ambulatory [facility] Work Phone: Start: 03-06-2022 End: 03-06-2022 Patient encounter procedure [facility] Start: 12-16-2021 End: 12-16-2021 ambulatory [facility] Work Phone: Start: 12-16-2021 End: 12-16-2021 Patient encounter procedure [facility]-Outpatient Breast Imaging Start: 12-14-2021 End: 12-14-2021 Discharged Recurring [facility]-Occupational Therapy Start: 12-14-2021 Registered Recurring [facility] Start: 12-13-2021 End: 12-30-2021 Phone Encounter Heather Rivera DO Work Phone: [facility] Start: 12-13-2021 Review Heather chong DO Work Phone: [facility] Start: 12-07-2021 End: 12-07-2021 Annotation/Addendum Heather Rivera DO Work Phone: [facility] Start: 09-05-2021 End: 09-05-[address] Heather Rivera Work Phone: [facility] Start: 08-31-[address] Catracho Rivera Work Phone: [facility]-Occupational Therapy Start: 07-20-2021 End: 07-20-[address] Heather Rivera Work Phone: [facility] Start: 07-01-[address] Catracho Rivera Work Phone: [facility]-Occupational Therapy Start: 06-13-2021 End: 06-13-[address] Heather Rivera Work Phone: [facility] Start: 04-20-2021 End: 04-20-[address] Heather Rivera Work Phone: [facility]-Outpatient Bone Densitometry Start: 04-11-2021 End: 04-11-2021 Emergency department patient visit Dr. Heather Rivera Work Phone: [facility]-Emergency Department Start: 04-11-2021 End: 04-11-[address] Heather Rivera Work Phone: [facility] Start: 03-24-2019 End: 03-24-2019 Phone Encounter Heather Rivera DO Work Phone: [facility] Start: 03-20-2019 End: 03-20-2019 Patient encounter status Heather Rivera DO Work Phone: [facility]; [facility] Work Phone: Start: 03-20-2019 End: 03-20-2019 Periodic preventive med est patient 40-64yrs Heather Rivera DO Work Phone: [facility] Start: 11-05-2015 End: 11-05-2015 Office outpatient visit 15 minutes Heather Rivera DO Work Phone: [facility] Start: 01-29-2015 End: 01-29-2015 Patient encounter procedure Heather Rivera DO Work Phone: [facility] Start: 10-27-2008 End: 10-27-2008 Phone Encounter Heather Rivera DO Work Phone: [facility] Start: 10-19-2008 End: 10-19-2008 Patient encounter procedure Heather Rivera DO Work Phone: [facility] Start: 06-13-2006 End: 06-13-2006 Office outpatient visit 25 minutes Heather Rivera DO Work Phone: [facility] Start: 01-15-2006 End: 01-15-2006 Phone Encounter Heather Rivera DO Work Phone: [facility] Procedures Date Procedure Procedure Detail Performing Clinician Start: 06-24-2024 Dual energy X-ray absorptiometry Dr. Heather Rivera DO Work Phone: Start: 04-02-2024 X-ray of chest, PA and lateral views Dr. Heather Rivera DO Work Phone: Start: 12-16-2021 Screening mammography Start: 12-16-2021 End: 12-16-2021 SCRN MAMM (CAD)W/DANIELLE BILAT Procedure Note: See Note; NOTES: [facility] Imaging Services [address] [place] [address] SCRN MAMM (CAD)W/DANIELLE BILAT MR#: [id number] Acct: [id number] Name: ALEXA MINA Rep #: [id number] : 1960 F 61 From: Vance suárez MD PCP: Dr. Heather Rivera, DO Status: REG CLI Study: SCRN MAMM (CAD)W/DANIELLE BILAT Date of Exam: 11/20 10/10 Exam# [id number] Ordering Dr: Heather Rivera DO MAMMOGRAPHY - BILATERAL SCREENING REASON FOR EXAM: Female, 61 years old. Routine annual screening examination. PERTINENT HISTORY: Mother with breast cancer. TECHNIQUE: Digital bilateral breast danielle (3D mammographic acquisition) in the CC and MLO projections. 2-D mediolateral oblique (MLO) and craniocaudad (CC) views of both breasts were obtained. CAD: Full Field Digital Mammography with Computer Added Detection was performed. COMPARISON: Comparison is made with prior study dated 08/26/2020 and 11/13/2018. FINDINGS: Breast Composition: The breasts are heterogeneously dense, which may obscure small masses. There are no dominant masses or suspicious calcifications. No other significant abnormalities are identified. There has been no significant change since the prior study. BI/SCRN MAMM (CAD)W/DANIELLE BILAT IMPRESSION: Stable bilateral screening mammogram. Yearly follow-up mammogram recommended. (A) ASSESSMENT CATEGORY: BIRADS Category 1: Negative. A letter regarding these results will be sent to the patient by the facility within 30 days. Approximately 10% of breast cancers are not detected by mammography. A normal mammogram should not delay biopsy of a clinically suspicious abnormality. [id number] Electronically Signed: Vance Hairston MD at 10:52 EDT Reading Location ID and State: [address] [place] [address] , Service support , CC: Dr. Heather Rivera DO Refund Specialist: Signed Heather Rivera DO Work Phone: Start: 11-18-2021 End: 11-18-2021 Re-Evalution OT Procedure Note: See Note; NOTES: [facility] [address] [place] [address]. [address] [place] [address] / REEVALUATION / MEDICARE RECERTIFICATION OCCUPATIONAL THERAPY MR#: [id number] Acct: [id number] Name: ALEXA MINA Rep #: [id number] : 1960 61 From: Eileen Soto OTR/L, CHT Referring Dr.: Dr. Gabriele Jennings MD Status: RE G RCR Insurance: [employer] Mcmillan Date: SELF PAY INSURANCE Dr. Gabriele Jennings MD, It has been my pleasure to treat ALEXA HILL MINA over the last 19 visits for S52.532D colles' fx left radius. Please see the progress note below for an update on the occupational therapy plan of care! Subjective: pt arrives after 30 days of working on her own with her HEP - pt states she struggles with doing dishes- holding deodorant to put under her right arm- feels pain and weakness continues to limit he with all dil Objective/Function: pt returns to OT after 4 weeks of unable to schedule do to travel etc. pt continues to demo difficulty with forearm supination and wrist ext. see below for measurements. UD 15. RD 20. wrist 45/50. left forearm supination 55*. shoulder still painful but feels from compensation -. left LF PIP contracture -25*/100. left enamel shader strength 35# this is increase from 30# tested on 10/17/21. left lateral pinch 10#. left tripod pinch 6#. pt continues to struggle with enamel shader strength -. therapist advised pt we could focuses on strength 2-3x week for next 3 weeks to get strength up- but pt is traveling in and out the next month- therapist has given putty for HEP for strength along with resistive rings- pt works out at gym with eq.as well on what eq. she feels she can tolerate. pt to schedule as able Plan Frequency: 2-3x /Week Duration: 3 Weeks Visits in this POC: 24 Plan: will focus on PRE as pt is able to schedule do to travel plans Goals - Goals Patient Goals: Regain Mobility, Regain Strength, Decrease Pain, Return to Work, Decrease Swelling/Stiffness, Improve Fine Motor Skills, Use Hand/Wrist/Arm Normally Again, Sleep Better, Decrease Tingling/Numbness, Increase ROM, Be More Independent in ADLS, Decrease Sensitivity, Resume Former Household Responsibilities (Cooking,Cleaning,Yard, etc.), Resume Hobbies Goal:: Pt will improve L enamel shader strength >10# and tripod pinch strength to >2# in order to improve function for ADLS/IADLS by discharge. Goal:: Pt will improve L hand ROM to make loose composite fist in order to improve grasp/pinch tasks by discharge. Goal:: Pt will report decrease in pain to no more than 3/10 during prior functional tasks by discharge Goal:: Pt will demo decreased edema in wrist and digits w/in .2 cm comparable to R hand by discharge Goal:: Pt will report increase in functional use of L hand during functional tasks including bathing, groooming and dressing tasks by discharge. Anticipated Interventions Anticipated Interventions: A/AAROM/PROM, Strengthening, Edema Control, Massage, Triggerpoint Release, Desensitization, Modalities, Orthoses, Home Program Please do not hesitate to contact me at [phone] by phone or if you have questions or concerns regarding this new plan of care! Sincerely, Eileen Soto, RODERICKR/Shlomo, CHT <Electronically signed by Eileen MCGARRY/KALLIE Keenan> 11/18/21 0908 CC: Dr. Heather Rivera DO; Dr. Gabriele Jennings MD MK Signed For Medicare only, by signing this I certify the plan of care. Physicians Signature Date Heather Rivera DO Work Phone: Start: 09-08-2021 End: 09-08-2021 Re-Evalution OT Procedure Note: See Note; NOTES: [facility] [address] [place] [address] / REEVALUATION / MEDICARE RECERTIFICATION OCCUPATIONAL THERAPY MR#: [id number] Acct: [id number] Name: ALEXA MINA Rep #: [id number] : 1960 61 From: Eileen MCGARRY/Shlomo, CHT Referring Dr.: Dr. Gabriele Jennings MD Status: RE G RCR Insurance: [employer] Date: SELF PAY INSURANCE Dr. Gabriele Jennings MD, It has been my pleasure to treat ALEXA HILL MINA over the last 16 visits for S52.532D colles' fx left radius. Please see the progress note below for an update on the occupational therapy plan of care! Subjective: pt arrives states she is doing ok- is worried her LF PIP is not straightening- pt states she is really working on her stretching daily Objective/Function: left wrist 45/50* increase from 40/25*. left forearm supination 40 increase from neutral. . left enamel shader strength is 20# this is increase from 10# right enamel shader strength 50#. pt demo the ability to from a composite fist this is improvement from prior measurements-. edema measurements of MCP left 18cm left 18cm, MF PIP left 5.9 right 5.6 (edema has significantly improved). Pt continues to make gains with her recovery- forearm supination continues to limit her function and pts weak enamel shader- therapy has pt working on supination and we have her on our BTE to increase her strength- this machine challenges different chief lock tender operator ( simulates jar lid, screw hire car driver, and enamel shader squeeze). pt has initiated a PRE at her local gym and she exercises as tolerated and what her limited ROM will allow. pt would benefit from continued services to improve ROM and strength of left UE to return to a PLOF with ADLs and IADLS . Plan Frequency: 2-3x /Week Duration: 6 Weeks Visits in this POC: 24 Plan: end range stretch. strengthening Goals - Goals Patient Goals: Regain Mobility, Regain Strength, Decrease Pain, Return to Work, Decrease Swelling/Stiffness, Improve Fine Motor Skills, Use Hand/Wrist/Arm Normally Again, Sleep Better, Decrease Tingling/Numbness, Increase ROM, Be More Independent in ADLS, Decrease Sensitivity, Resume Former Household Responsibilities (Cooking,Cleaning,Yard, etc.), Resume Hobbies Goal:: Pt will improve L enamel shader strength >10# and tripod pinch strength to >2# in order to improve function for ADLS/IADLS by discharge. Goal:: Pt will improve L hand ROM to make loose composite fist in order to improve grasp/pinch tasks by discharge. Goal:: Pt will report decrease in pain to no more than 3/10 during prior functional tasks by discharge Goal:: Pt will demo decreased edema in wrist and digits w/in .2 cm comparable to R hand by discharge Goal:: Pt will report increase in functional use of L hand during functional tasks including bathing, groooming and dressing tasks by discharge. Anticipated Interventions Anticipated Interventions: A/AAROM/PROM, Strengthening, Edema Control, Massage, Triggerpoint Release, Desensitization, Modalities, Orthoses, Home Program Please do not hesitate to contact me at [phone] by phone or if you have questions or concerns regarding this new plan of care! Sincerely, Eileen Soto, ZEFERINO/Shlomo, CHT <Electronically signed by Eileen MCGARRY/Shlomo CHT> 09/08/21 1300 CC: Dr. Heather Rivera DO; Dr. Gabriele Jennings MD MK Signed For Medicare only, by signing this I certify the plan of care. Physicians Signature Date Heather Rivera DO Work Phone: Start: 07-25-2021 End: 07-25-2021 Re-Evalution OT Comments: See Note; NOTES: [facility] [address] [place] [address] / REEVALUATION / MEDICARE RECERTIFICATION OCCUPATIONAL THERAPY MR#: [id number] Acct: [id number] Name: ALEXA MINA Rep #: [id number] : 1960 61 From: Eileen MCGARRY/Shlomo CHNatacha Referring Dr.: Dr. Gabriele Jennings MD Status: RE G RCR Insurance: [employer] Date: SELF PAY INSURANCE Dr. Gabriele Jennings MD, It has been my pleasure to treat ALEXA HILL MINA over the last 10 visits for S52.532D colles' fx left radius. Please see the progress note below for an update on the occupational therapy plan of care! Subjective: pt arrives to OT session after being on vacation with her dtr- states she went to pain mtg- (states she did see dr. jennings) but will go to get MRI results tomorrow) - Objective/Function: left wrist ROM 40/25. left wrist RD 10 UD 15. left forearm supination to N only. pt can perform opposition to tip of LF. left enamel shader strength 10#. right enamel shader strength 60#. left lateral pinch 2#. left tripod pinch unable. left digits. IF MCP 0/60 PIP 0/75 DIP 0/60. MF MCP 0/50 PIP 0/80 DIP 0/60. RF MCP 0/45PIP 0/80 DIP 0/45. LF MCP 0/60 PIP 0/80 DIP 0/35. pt continues to compensate for limited forearm rotation- with shoulder external rotation and bringing her elbow in front of her body to get her her palm up -. pt has not been seen in OT for over 3 weeks due to her travel schedule - based on her measurements prior to her trip she fluctuated about 5-10*. therapist noted less wrist drop with ambulation-. pt tolerating therapy well- will continue with her ROM as tolerated Pain mtg. did give her pain medication so we can be more aggressive in therapy. based on MRI report pt may benefit from a stat-a-dyne brace to progress pts wrist and forearm ROM. will wait for. Plan Frequency: 2-3x /Week Duration: 6 Weeks Visits in this POC: 24 Plan: gave stress loading ex. sheetEd. pt that she needed to schedule 3x week as to with her work schedule to get more therapy- therapist advised to work with her hand for 10 min every hour - ( pt hasn't been doing that much). therapist will continue with sensory re-ed/desensitization and transition to shoulder isometric to decrease risk of injury as well as transition to functional grasp of different objects size and shape- Due to limited forearm supination pt may benefit from a stat-a-dyne. Goals - Goals Patient Goals: Regain Mobility, Regain Strength, Decrease Pain, Return to Work, Decrease Swelling/Stiffness, Improve Fine Motor Skills, Use Hand/Wrist/Arm Normally Again, Sleep Better, Decrease Tingling/Numbness, Increase ROM, Be More Independent in ADLS, Decrease Sensitivity, Resume Former Household Responsibilities (Cooking,Cleaning,Yard, etc.), Resume Hobbies Goal:: Pt will improve L enamel shader strength >10# and tripod pinch strength to >2# in order to improve function for ADLS/IADLS by discharge. Goal:: Pt will improve L hand ROM to make loose composite fist in order to improve grasp/pinch tasks by discharge. Goal:: Pt will report decrease in pain to no more than 3/10 during prior functional tasks by discharge Goal:: Pt will demo decreased edema in wrist and digits w/in .2 cm comparable to R hand by discharge Goal:: Pt will report increase in functional use of L hand during functional tasks including bathing, groooming and dressing tasks by discharge. Anticipated Interventions Anticipated Interventions: A/AAROM/PROM, Strengthening, Edema Control, Massage, Triggerpoint Release, Desensitization, Modalities, Orthoses, Home Program Please do not hesitate to contact me at [phone] by phone or if you have questions or concerns regarding this new plan of care! Sincerely, Eileen Soto OTR/Shlomo, CHT <Electronically signed by Eileen MCGARRY/Shlomo, CHT> 07/25/21 3949 CC: Dr. Heather Rivera DO; Dr. Gabriele Jennings MD MK Signed For Medicare only, by signing this I certify the plan of care. Physicians Signature Date Heather Rivera DO Work Phone: Start: 07-20-2021 MRI of joint of lower extremity Dr. Heather Rivera Work Phone: Start: 07-20-2021 End: 07-20-2021 Upper Ext Joint Only(Routine) Comments: See Note; NOTES: [facility] Imaging Services [address] [place] [address] Upper Ext Joint Only(Routine) MR#: [id number] Acct: [id number] Name: ALEXA MINA Rep #: [id number] : 1960 F 61 From: Paulino Truong PCP: Dr. Heather Rivera, DO Status: REG CLI Study: Upper Ext Joint Only(Routine) Date of Exam: 0 07/20/21 Exam# [id number] Ordering Dr: Taqueria Trevino MD STUDY: MRI LEFT WRIST WITHOUT CONTRAST REASON FOR EXAM: Loss of range of motion and swelling, left wrist fracture 12 weeks ago. TECHNIQUE: Standardized fat and water weighted pulse sequences were obtained in all 3 orthogonal planes. COMPARISON: Radiographs 06/13/2021. FINDINGS: There is a healing fracture of the distal radius (inversion recovery coronal images 11-16). There is a fracture of the ulnar styloid process with residual bone edema and without osseous union (inversion recovery coronal image 11). Normal distal radioulnar articulation (DRUJ). Normal triangular fibrocartilaginous complex (TFCC). There is a subchondral cyst in the radial aspect of the lunate (gradient coronal images 20-23). Normal radiocarpal, intercarpal and midcarpal articulations. Normal pisotriquetral articulation. Normal visualized interosseous scapholunate ligament. Normal extensor tendons. Normal flexor tendons. Normal carpal tunnel with a normal median nerve. There is mild arthrosis of the carpometacarpal articulation of the thumb with small marginal osteophytes and mild chondral thinning (gradient coronal image 20). Normal second through fifth carpometacarpal articulations. Normal visualized metacarpal bones. There is mild edema in the subcutis adipose space. MRI/Upper Ext Joint Only(Routine) IMPRESSION: Healing fracture of the distal radius. Fracture of the ulnar styloid process without osseous union. Mild arthrosis of the first carpometacarpal articulation. Subchondral cyst in the lunate. Electronically Signed: Paulino Barkley MD at 14:28 EDT , CC: Dr. Taqueria Trevino MD; Dr. Heather Rivera DO Refund Specialist: Signed Heather Rivera DO Work Phone: Start: 06-13-2021 End: 06-13-2021 Forearm 2 Views Comments: See Note; NOTES: [facility] Radiology [address] [place] [address] Forearm 2 Views MR#: [id number] Acct: [id number] Name: ALEXA MINA Rep #: [id number] : 1960 F 61 From: Aayush Farrar MD PCP: Dr. Heather Rivera DO Status: DEP AMB Study: Forearm 2 Views Date of Exam: 06/13/21 Exam# [id number] Ordering Dr: Taqueria Trevino MD STUDY: X-RAY - LEFT RADIUS AND ULNA REASON FOR EXAM: Female, 61 years old. PT COMPLAINED OF 9/10 PAIN AND SWELLING WITH CAST ON BUT NO ADJUSTMENTS MADE. AFTER CAST WAS REMOVED PT''S HAND AND WRIST REMAINED EXTREMLEY SWOLLEN AND UNABLE TO TWIST- FUSED LIKE FEELING. TECHNIQUE: 3 view(s) of the forearm. COMPARISON: 06/13/2021, 04/11/2021 FINDINGS: There is no demonstrated soft tissue swelling. Improved alignment of distal radial fracture but persistent fracture line is seen. Mild bridging bone along the medial and lateral margins. Ulnar styloid fractures again identified. Diffuse osteopenia. Overall improved alignment since the reduction x-ray 04/11/2021 RAD/Forearm 2 Views IMPRESSION: Partially healed distal radial fracture. Ulnar styloid fracture. Electronically Signed: Aayush Farrar MD ([place]) at 15:23 EDT , CC: Dr. Taqueria Trevino MD; Dr. Heather Rivera DO Refund Specialist: Signed Heather Rivera DO Work Phone: Start: 06-13-2021 Plain x-ray of wrist Dr. Heather Rivera Work Phone: Start: 06-13-2021 End: 06-14-2021 Wrist min 3 Views Comments: See Note; NOTES: [facility] Radiology [address] [place] [address] Wrist min 3 Views MR#: [id number] Acct: [id number] Name: ALEXA MINA Rep #: [id number] : 1960 F 61 From: Estevan Forrest MD PCP: Dr. Heather Rivera DO Status: DEP AMB Study: Wrist min 3 Views Date of Exam: 06/13/21 Exam# [id number] Ordering Dr: Taqueria Trevino MD STUDY: X-RAY - LEFT WRIST REASON FOR EXAM: Female, 61 years old. Follow-up of fracture. TECHNIQUE: 3 view(s) of the wrist were obtained out of casting material. COMPARISON: 04/11/2019. FINDINGS: Osteopenia. Deformity of the distal radius with impaction at the previously described fracture site. Ulnar styloid fracture unchanged. Stable osteoarthritic changes. The soft tissue structures are unremarkable. RAD/Wrist min 3 Views IMPRESSION: Healing fracture of the distal radius with unchanged ulnar styloid fracture and osteoarthrosis. No complications. Electronically Signed: Estevan Forrest MD at 9:25 EDT , CC: Dr. Taqueria Trevino MD; Dr. Heather Rivera DO Refund Specialist: Signed Heather Rivera DO Work Phone: Start: 06-13-2021 X-ray of radius and ulna Dr. Heather khan Work Phone: Start: 05-30-2021 End: 05-30-2021 OT General Evaluation Comments: See Note; NOTES: [facility] [facility] [address] [place] [address] / REHABILITATION SERVICES INITIAL EVALUATION MR#: [id number] Acct: [id number] Name: ALEXA MINA Rep #: [id number] : 1960 61 From: Adelita Baer Referring Dr.: Dr. Gabriele Jennings MD Status: RE G R [facility] Date: SELF PAY INSURANCE Patient's Visit Information ALEXA MINA is a 61 year old F, referred to Occupational Therapy by Dr. Gabriele Jennings MD, with a diagnosis of S52.532D colles' fx left radius. Date of Evaluation: 05/30/21 Occupational Therapist: Adelita Baer - Subjective Pt is 61 y/o female who presents s/p Colles fx (L); onset date of 04/11/21 after rollerskating fall; Pt had comminuted and impacted distal radius fx and fx of ulnar styloid; pt underwent beside reduction and was put in a splint from wrist to forearm w 90* elbow flexion; pt presents today after having splint on for 6 weeks (elbow for 3 weeks); pt had x-rays last week and surgeon said that the bones look good but thinks patient has RSD; pt reports that doctor said to try to use it as tolerated and follow up in 3 weeks; She has over the counter wrist splint: 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 - ADLs Dressing: Bra, Overhead shirt, Coat, Pants Fasteners: Buttons, Zippers Eating: Cut food, Butter bread Toileting: Manage clothing Grooming: Comb hair, Put on makeup Kitchen: Chop with knife, Peel fruits vegetables, Open jars, Ziplock bags, Lift gallon of milk, Lift saucepan, Take dish out of oven, Place dish in microwave Household: Dust, Laundry - Pain Left Hand 6 Pain Intensity Range: 3, 9 - Objective Pt presents with moderate swelling in digits and wrist; bruising of base of thumb and ulnar wrist; - ROM Elbow: L - R WFL Forearm: L sup; 65 R WFL Wrist: L flex; 34* ext: -5 R WFL MP: L 36 R WFL IP: L 25 R WFL Opposition: 0 MP: IF: 47 MF: 47 RF: 42 LF: 35 PIP: IF: 37 MF: 45 RF: 55 LF: 55 DIP: IF: 21 MF: 35 RF: 28 LF: 25 - Strength Shoulder: grossly 4-/5 Elbow: bicep 3+/5 triceps 4-/5 Psychologist Private Practice: R: 46# L: 0 Lateral Pinch: R: 11# L: 0 Tripod Pinch: R: 10# L: 0 - Edema Wrist: R 14 cm L 17.5 cm PIP: L IF: 6.3 MF: 6.4 RF: 6.1 LF: 5.6 Other: R PIP IF 5.7 MF 5.8 RF 5.5. LF 4.9 - Quick DASH-Disab of Arm,Shoulder Hand Quick DASH Score: 90.9075 - Goals Goal:: Pt will improve L enamel shader strength >10# and tripod pinch strength to >2# in order to improve function for ADLS/IADLS by discharge. Goal:: Pt will improve L hand ROM to make loose composite fist in order to improve grasp/pinch tasks by discharge. Goal:: Pt will report decrease in pain to no more than 3/10 during prior functional tasks by discharge Goal:: Pt will demo decreased edema in wrist and digits w/in .2 cm comparable to R hand by discharge Goal:: Pt will report increase in functional use of L hand during functional tasks including bathing, groooming and dressing tasks by discharge. - Rehabilitation General Assessment: Pt presents with moderate swelling, limited ROM, limited strength, and overall mobility hindering her ability to complete prior functional tasks including ADLs, IADLs and work. Pt would benefit from cont. therapy services for 2x/week for 6 weeks to address skill deficits. Rehabilitation Potential: Good - Anticipated Interventions A/AAROM/PROM, Strengthening, Edema Control, Massage, Triggerpoint Release, Desensitization, Modalities, Orthoses, Home Program - Visit Plan Frequency: 2x /Week Duration: 6 Weeks TEXT: Thank you for the opportunity to evaluate your patient. For Medicare and Medicare HMO plans, please review the plan of care and approve it. It will need to be FAXED BACK to us at [phone] for Medicare purposes. Please let me know if there are questions or concerns regarding this plan of care. Physician Signature: ___Date: <Electronically signed by Adelita Baer > 05/30/21 1735 CC: Dr. Heather Rivera DO; Dr. Gabriele Jennings MD KP Signed For Medicare only, by signing this I certify the plan of care. Physicians Signature Date Heather Rivera DO Work Phone: Start: 04-20-2021 End: 04-22-2021 Dexa Bone Density Study Comments: See Note; NOTES: [facility] Imaging Services [address] [place] [address] Dexa Bone Density Study MR#: [id number] Acct: [id number] Name: ALEXA MINA Rep #: [id number] : 1960 F 61 From: Vance suárez MD PCP: Dr. Heather Rivera DO Status: [facility] Study: Dexa Bone Density Study Date of Exam: 04/20/21 Exam# [id number] Ordering Dr: Anupam Hanson MD STUDY: DUAL ENERGY X-RAY ABSORPTIOMETRY / DXA REASON FOR EXAM: Female, 61 years old. Osteoporosis TECHNIQUE: Bone Mineral Density (BMD) measurements of lumbar spine and bilateral hips were obtained. COMPARISON: Comparison is made with prior study dated 11/13/2018 FINDINGS: Lumbar Spine (L1-L4): g/cm2 (0.823) / T-score (-2.0) / Z-score (-0.7) Findings are suggestive of osteopenia with a moderate fracture risk. Left Femur Total: g/cm2 (0.722) / T-score (-1.8) / Z-score (-0.9) Left Femoral Neck: g/cm2 (0.552) / T-score (-2.7) / Z-score (-1.4) Right Femur Total: g/cm2 (0.733) / T-score (-1.7) / Z-score (-0.8) Right Femoral Neck: g/cm2 (0.566) / T-score (-2.6) / Z-score (-1.3) The T-Scores on the most recent prior examination were: Lumbar Spine (L1-L4): There has been improvement of bone density since the previous examination. Left Femur Total: which represents an improvement of 6.2%. Right Femur Total: which represents an improvement of 5.6%. BD/Dexa Bone Density Study IMPRESSION: The patient is considered osteoporotic as outlined below according to World Malcolm Organization (WHO) criteria with a high fracture risk. There has been improvement of bone density since the previous examination. Reference Information: The T-score is the number of standard deviations above or below the standard which is normal for young adults at their peak bone mineral density. The World Health Organization (WHO) interprets the T-scores as follows: Above -1 Normal bone density Between -1 and -2.5 Osteopenia Equal to / or below -2.5 Osteoporosis As a practical clinical guideline, osteopenia may be graded as follows: Mild -1 through -1.5 Moderate -1.6 through -2.0 Severe -2.1 through -2.4 The Z-score is the number of standard deviations above or below age-matched controls. A Z-score of less than -1.5 would be considered abnormal. References: 1. NIH Osteoporosis and Related Bone Diseases www osteo.org 2. International Society for Clinical Densitometry www iscd.org 3. National Osteoporosis Foundation www nof.org Electronically Signed: Vance Hairston MD at 8:21 EST , CC: Dr. Heather Rivera DO; Dr. Anupam Hanson MD Refund Specialist: Signed Heather Rivera DO Work Phone: Start: 04-20-2021 Dual energy X-ray absorptiometry Dr. Heather Rivera Work Phone: Start: 04-11-2021 End: 04-11-2021 Consultation Comments: See Note; NOTES: [facility] Medical Records Department [address] [place] [address] Consultation 04/11/21 1803 MR#: [id number] Acct: [id number] Name: ALEXA MINA Rep #: [id number] : 1960 61 From: Gabriele Jennings MD PCP: Dr. Heather Rivera DO Status:[facility] ER Location: ED Assessment Plan Assessment/Plan (1) Fracture of wrist: PLAN: Her diagnosis and treatment options regarding her left distal radius Colles' type fracture discussed with her and her family. Patient did wish to have closed reduction. She understood this would be done with the help of the ER physician, conscious sedation. She understood if the fracture does not hold in place after reduction she may need surgical intervention. No guarantees were stated or implied. Procedure: After obtaining appropriate consent patient underwent conscious sedation is administered by the ER physician. After adequate conscious sedation she underwent reduction with traction countertraction and manipulation of her left wrist. ER nurse was assisting me. After adequate reduction was carried out fluoroscopic images obtained showing good reduction. At this point she was placed in well-padded AP splints with careful three-point bending of the splints. Once splints were adequately hardened in a short arm fashion further set of AP and lateral x-rays taken and saved showing near anatomic position of the radius and ulna. After the splints had completely hardened I put an elbow splint extending from her upper arm to her wrist with the elbow at 90 degrees. Patient will continue under the care of the emergency room physician. She will be discharged to home when criteria are met. Appropriate pain medication per the ER physician. Sling if needed. Ice and elevation. We will plan to see her in the office in less than 1 week for x-rays with her splint on. Sooner if needed. All of their questions were answered. This note was generated with [employer] dictation software. It may contain incorrect words, spelling, and punctuation that were not noted in checking the note before signing. HPI Consult Data Date of Consult: 04/11/21 HPI Narrative HPI Narrative: ALEXA MINA, is a 61 F who presents after falling while rollerblading earlier today. She sustained left wrist pain and deformity. Denies head injury or loss of consciousness. She was brought to [facility] for a fracture. Orthopedics was consulted. Denies numbness or tingling in the fingers. [facility] Medical History (Updated 04/11/21 @ 17:32 by STEVE Marie) Bone fracture Heart murmur Osteopenia Vitamin deficiency Home Medications BD Ultra-Fine Belem Pen Needle 32 gauge x #90 ea NS 04/09/20 [Rx Last Taken Unknown] cholecalciferol (vitamin D3) 1,250 mcg (50,000 unit) capsule 50,000 unit PO QWEEK #12 cap 04/13/20 [Rx Last Taken Unknown] Forteo 20 mcg SC DAILY #7.2 ml NS 01/11/21 [Rx Last Taken Unknown] ondansetron 4 mg PO Q6H PRN #12 tab 04/11/21 [Rx Last Taken Unknown] oxycodone-acetaminophen [Percocet] 1 tab PO Q6H PRN 3 Days #12 tab 04/11/21 [Rx Last Taken Unknown] Allergy/AdvReac Type Severity Reaction Status Date / Time No Known Allergies Allergy Unverified 04/11/21 10:39 Family History Mother Breast cancer Surgical History History of Social History Smoking Status: Never smoker alcohol intake: current alcohol intake frequency: a few times a week what type of physical activity do you participate in: weight training frequency: 3-4 times per week ROS ROS Narrative Denies any recent problems or difficulties with eyes ears nose or throat heart or lungs bowel or bladder function. Physical Exam Narrative Left wrist has obvious deformity. Left wrist has pain on palpation. Some swelling. Hand is neurovascular intact. Fingers are neurovascular intact. No pain at the elbow or shoulder. No pain at the right upper extremity. X-rays AP lateral oblique of left wrist shows a distal radius Colles' type fracture with apex volar angulation. Significant comminution and shortening and displacement. Case discussed with ER physician Radiology Impression Wrist X-Ray 04/11/21 16:25 IMPRESSION: 1. Acute comminuted fracture of the distal radial metaphysis and articular surface 2. Acute displaced fracture of the ulnar styloid Electronically Signed: Michelet Talbert MD at 17:14 EST Reading Location ID and State: [facility] / [place] , Service support , 04/11/21 1808 <Electronically signed by Gabriele Jennings MD> Cosigner Signature (if applicable): CC: Dr. Heather Rivera, DO Signed Heather Rivera DO Work Phone: Start: 04-11-2021 O.RHector Fluoro for C-Arm Dr. Heather Haskins n Work Phone: Start: 04-11-2021 End: 04-11-2021 Emergency Department Summary Comments: See Note; NOTES: [facility] Medical Records Department [address] [place] [address] Emergency Department Summary 04/11/21 MR#: [id number] Acct: [id number] Name: ALEXA MINA Rep #: [id number] : 1960 61 From: Divya WILSON PCP: Dr. Heather Rivera, DO Status:DEP ER Location: ED HPI <STEVE Marie - Last Filed: 04/11/21 18:32> History of Present Illness Chief Complaint: Upper Extremity Injury Narrative Narrative: 61-year-old irdmg-[id number] female was rollerskating and fell and caught herself with her left wrist. She has a wrist deformity and pain. No paresthesias. Denies head injury or other injuries. PFSH <STEVE Marie - Last Filed: 04/11/21 18:32> [facility] Medical History (Updated 04/11/21 @ 17:32 by STEVE Marie) Bone fracture Heart murmur Osteopenia Vitamin deficiency Home Medications BD Ultra-Fine Belem Pen Needle 32 gauge x #90 ea NS 04/09/20 [Rx Last Taken Unknown] cholecalciferol (vitamin D3) 1,250 mcg (50,000 unit) capsule 50,000 unit PO QWEEK #12 cap 04/13/20 [Rx Last Taken Unknown] Forteo 20 mcg SC DAILY #7.2 ml NS 01/11/21 [Rx Last Taken Unknown] ondansetron 4 mg PO Q6H PRN #12 tab 04/11/21 [Rx Last Taken Unknown] oxycodone-acetaminophen [Percocet] 1 tab PO Q6H PRN 3 Days #12 tab 04/11/21 [Rx Last Taken Unknown] Allergy/AdvReac Type Severity Reaction Status Date / Time No Known Allergies Allergy Unverified 04/11/21 10:39 Family History Mother Breast cancer Surgical History History of Social History Smoking Status: Never smoker alcohol intake: current alcohol intake frequency: a few times a week what type of physical activity do you participate in: weight training frequency: 3-4 times per week ROS <STEVE Marie - Last Filed: 04/11/21 18:32> ROS ED ROS Narrative Constitutional: Negative for fever, chills, malaise. Eyes: Negative for visual change. ENT: Negative for sore throat, ear pain, rhinorrhea. CVS: Negative for palpitations, chest pain, syncope. Respiratory: Negative for shortness of breath, cough, orthopnea. GI: Negative for abdominal pain, nausea, vomiting. : Negative for dysuria, hematuria or frequency. Neuro: Negative for headache, motor/sensory dysfunction. Skin: Negative for rash, abscess, or wound. Musc: Positive for wrist pain, swelling, trauma. Heme: Negative for easy bruising, bleeding, lymphadenopathy. EXAM <STEVE Marie - Last Filed: 04/11/21 18:32> Physical Exam Narrative Exam Narrative: CONST: Patient sitting in no acute distress. EYES: Normal inspection. Head: Head normocephalic, atraumatic. NECK: Normal inspection. RESP: No respiratory distress, CTAB. CVS: Regular rate and rhythm, no murmur, no gallop. No chest wall tenderness. ABD: Soft and nontender, no guarding or rebound, nondistended. Back: Normal inspection, no CVA tenderness. SKIN: Color normal, no rash, warm, dry, intact. EXTREMITIES: Left wrist deformity with diffuse tenderness, 2+ radial pulse. Sensation intact in median, ulnar, radial distributions. NEURO: Oriented x4. PSYCH: Normal affect. Const Vital Signs: 04/11/21 16:18 Temperature 96.8 F L Temperature Source Temporal Pulse Rate 77 Respiratory Rate 17 Blood Pressure 104/73 Blood Pressure Mean 83 Pulse Ox 99 Oxygen Delivery Method Room Air MDM <STEVE Marie - Last Filed: 04/11/21 18:32> [facility] MDM Narrative Medical decision making narrative: Patient presents with a left wrist deformity after mechanical fall. She appears well nontoxic. Vital signs within normal limits. She has no evidence of head or neck trauma. She has an obvious left wrist deformity with pulses and sensation intact. Exam otherwise negative. X-ray shows a comminuted and impacted distal radius fracture with significant angulation. There is also a fracture of the ulnar styloid. I consulted the orthopedic doctor, Dr. Gabriele Jennings, who came to bedside for reduction. Patient was consented for procedural sedation which was administered by the ED attending. Wrist was placed in a splint and postreduction x-rays confirmed improved alignment. Patient tolerated the procedure well and is now awake and alert and comfortable with the plan. I prescribed Percocet, Zofran, and she has orthopedic follow-up on . She was discharged in stable condition. Diagnosis 1. Closed distal radius fracture, left wrist 2. Closed ulnar styloid fracture, left wrist Radiography Diagnostic Testing: Clinical Impression(s) from Imaging Studies Wrist X-Ray 04/11/21 16:25 IMPRESSION: 1. Acute comminuted fracture of the distal radial metaphysis and articular surface 2. Acute displaced fracture of the ulnar styloid Electronically Signed: Michelet Talbert MD at 17:14 EST Reading Location ID and State: [facility] / [place] , Service support , <Dr. Komal Martínez MD - Last Filed: 04/11/21 21:14> [facility] Treatment and Re-Evaluation Comments:: Patient seen and evaluated with physician assistant golf course superintendent. Patient's chart reviewed and endorsed to myself. Patient presents after a fall while rollerskating. She has obvious deformity to her left wrist. She denies any other injury. She is right-hand dominant. Head neck examination unremarkable. Heart is regular rate and rhythm. Lung sounds are clear. Abdomen is soft and nontender. Left upper extremity examination reveals obvious deformity at the left wrist. Rings are removed from her fingers. Palpable radial pulses are noted. She can wiggle fingers and has good sensation. No tenderness noted at the elbow or shoulder. X-rays revealed comminuted distal radius and ulnar styloid fractures. X-rays discussed with orthopedics who presented to bedside for reduction. I provided procedural sedation. Patient was placed on residential monitor with oxygen. She was given a total of 130 mg of propofol over several smaller boluses. Good sedation was noted and left wrist was reduced and splinted by Dr. Jennings. Patient will from sedation without difficulty. Total sedation time was 6 minutes. Patient is written for pain medication. She has orthopedic follow-up scheduled later this week. Discharge Plan Triage Chief Complaint: Upper Extremity Injury ED Provider: Divya Merrill Dx/Rx/DC Orders Clinical Impression: Fracture of wrist Instructions: ED Colles Fracture, Reduction Required Prescriptions: New oxycodone-acetaminophen [Percocet] 5-325 mg tablet 1 tab PO Q6H PRN (Reason: pain) 3 Days Qty: 12 RF: 0 ondansetron 4 mg tablet,disintegrating 4 mg PO Q6H PRN (Reason: nausea and vomiting) Qty: 12 RF: 0 No Action (DME) pen needle, diabetic [BD Ultra-Fine Belem Pen Needle] 32 gauge x 5/32 needle See Rx Instructions .ROUTE .MEDSUPPLY Qty: 90 RF: 3 cholecalciferol (vitamin D3) 1,250 mcg (50,000 unit) capsule 50,000 unit PO QWEEK Qty: 12 RF: 3 Forteo 20 mcg/dose (600mcg/2.4mL) pen injector 20 mcg SC DAILY Qty: 7.2 RF: 2 Primary Care Provider: Heather Rivera Referrals: Heather Rivera DO [Primary Care Provider] - Gabriele Jennings MD [STAFF PHYSICIAN] - Activity Restrictions/Additional Instructions: Today you were seen for fracture of your wrist. It was reduced which means the orthopedic doctor tried to put it back in alignment and placed a splint. I prescribed Percocet to take as needed for pain and Zofran to prevent nausea and vomiting. Please follow-up with the orthopedic doctor as instructed. Disposition Disposition: Home, Self Care Discharge Date/Time: 04/11/21 18:16 What to do if you have Problems For any increased pain, shortness of breath, bleeding, nausea or vomiting, chest pain, or any unexpected problems, contact your Primary Care Provider. Call [facility] ([phone]) or report to the closest Emergency Room. Call 911 if necessary. 04/11/21 1832 <Electronically signed by Divya WILSON> Cosigner Signature (if applicable): 04/11/212202 <Electronically signed by Komal Martínez MD> CC: Dr. Heather Rivera DO Signed Heather Rivera DO Work Phone: Start: 04-11-2021 Plain x-ray of wrist Dr. Heather Rivera Work Phone: Start: 04-11-2021 End: 04-11-2021 Wrist min 3 Views Comments: See Note; NOTES: [facility] Imaging Services [address] [place] [address] Wrist min 3 Views MR#: [id number] Acct: [id number] Name: ALEXA MINA Rep #: [id number] : 1960 F 61 From: Michelet corado MD PCP: Dr. Heather Rivera DO Status: REG ER Study: Wrist min 3 Views Date of Exam: 04/11/21 Exam# [id number] Ordering Dr: Divya Merrill STUDY: X-RAY - LEFT WRIST REASON FOR EXAM: Female, 61 years old. PT FELL ROLLER SKATING, PAIN AND DEFORMITY TECHNIQUE: 3 view(s) of the wrist were obtained. COMPARISON: None. FINDINGS: An acute comminuted impacted and slightly foreshortened fracture of the distal radial metaphysis and articular surface is present. The major fracture fragments are mildly displaced. An acute fracture is also seen through the base of the ulnar styloid with mild displacement. The surrounding soft tissues are mildly swollen. Normal radiocarpal articulation. Normal distal radioulnar articulation. Normal carpal bones. Normal carpal articulations. Normal carpometacarpal articulation of the thumb. Normal second through fifth carpometacarpal articulations. Normal visualized metacarpal bones. RAD/Wrist min 3 Views IMPRESSION: 1. Acute comminuted fracture of the distal radial metaphysis and articular surface 2. Acute displaced fracture of the ulnar styloid Electronically Signed: Michelet Talbert MD at 17:14 EST Reading Location ID and State: [facility] / [place] , Service support , CC: STEVE Merrill; Dr. Heather Rivera DO Refund Specialist: Signed Heather Rivera DO Work Phone: Start: 04-11-2021 Plain x-ray of wrist Dr. Heather Rivera Work Phone: Start: 04-11-2021 End: 04-11-2021 Endocrinology Visit Report Comments: See Note; NOTES: [facility] [address] [place] [address] OFFICE VISIT Date of Service: 04/11/21 MR#: [id number] Acct: [id number] Name: ALEXA MINA Rep #: [id number] : 1960 Provider: Salomón Vela Age/Sex: 61/F [place] [facility] [place]: Signed Intake Vital Signs 04/11/21 10:34 04/11/21 10:39 Height 5 ft 6 in Weight: 139 lb 8 oz BMI 22.5 22.8 BP 100/70 Blood Pressure Location Rt brachial Position Sitting Respiration 18 Pulse 83 Pulse Source Monitor Temp 97.1 F L Temp Source Temporal Pulse Oximetry (%) 100 Oxygen Delivery Method room air Intake Visit Reasons: 1 Y FU Chief Complaint: Osteoporosis Search Engine Optimization Manager Required: No Accompanied by: self Is patient in pain?: No Allergies No Known Allergies Allergy (Unverified 04/11/21 10:39) PFSH Medical History Bone fracture Heart murmur Osteopenia Vitamin deficiency Surgical History History of Family History Mother Breast cancer Social History Smoking Status: Never smoker alcohol intake: current alcohol intake frequency: a few times a week what type of physical activity do you participate in: weight training frequency: 3-4 times per week HPI HPI Chief Complaint: Osteoporosis Details: ALEXA MINA is a 61 F who presents to the office today for follow up. From last visit: The patient reports a history of fracture of L1 many years ago. She also fractured her shoulder falling off of a horse. She has chronic moderate back pain. LMP 2013, no estrogen therapy. No tobacco, has 3 drinks per week. No family history of osteoporosis. She was previously treated with oral Fosamax for 5 years. Unfortunately, her DEXA has worsened by 8%. T-score is -2.5 right femur. She has taken Forteo for one year. We had some miscommunication. I thought she told me last year that she was off of Forteo from January to March. Now she says that is incorrect. I wanted her to continue Forteo from Mar, 2020 to Mar 2021. She did that, but now feels she was on the medication for 2 more months than she should have been. She is taking rx vitamin D once a week. Exam Const General: cooperative, healthy appearing, comfortable, no acute distress, well developed and well groomed Nutritional Appearance: well nourished Orientation: alert, awake and oriented x3 HENMT Head: normal to inspection Eyes General: appearance normal, both eyes and all related structures Alignment and Position: alignment normal Periorbital: periorbital findings normal Neck Neck: normal visual inspection Resp Effort Inspection: normal respiratory effort, able to speak in complete sentences, symmetric chest movement, no audible wheezes and no cough Cardio Rate: regular rate Rhythm: regular rhythm Psych Appearance: grossly normal Mental Status: mental status grossly normal Mood: congruent mood Affect: normal affect Speech and Movement: speech and movement normal Attitude: cooperative Thought Process: normal Thought Content: normal Judgment: judgment good Coding Level of Care Code Off vis,est,level 3 Diagnoses Osteoporosis M81.0 Osteoporosis type: age-related Presence of current pathological fracture: without current pathological fracture Vitamin D deficiency E55.9 Assessment and Plan Assessment and Plan (1) Osteoporosis: Status: Chronic Qualifiers: Osteoporosis type: age-related Presence of current pathological fracture: without current pathological fracture Qualified Code(s): M81.0 - Age-related osteoporosis without current pathological fracture Orders: Orders: Vitamin D,25 Hydroxy Today Comprehensive Metabolic Profil Today Dexa Bone Density Study Today Plan - Dr. Anupam Hanson MD: She has completed courses of bisphosphonate and Forteo. Will get bone density. if improved, she would like to take a drug holiday. If she has bone loss in 2 years, I would recommend starting Prolia. (2) Vitamin D deficiency: Status: Chronic Orders: Orders: Vitamin D,25 Hydroxy Today Comprehensive Metabolic Profil Today Plan - Dr. Anupam Hanson MD: She will finish her rx and then change to OTC 2,000 IU daily. I ordered D level in case she wants to have that drawn. I have spent [24] minutes today reviewing labs, records and history. Time includes coordinating care, interpretation of tests, discussion with patient's other health care providers via telephone. This also includes time I spent with the patient for exam, treatment plan and education as well as documenting clinical information. 04/11/21 1059 <Electronically signed by Anupam Hanson MD> Date Anupam Hanson MD Cosigner Signature: Date (if applicable) CC: Heather Rivera DO Work Phone: Start: 08-26-2020 End: 08-26-2020 SCRN MAMM (CAD)W/DANIELLE BILAT Comments: See Note; NOTES: [facility] Imaging Services [address] [place] [id number] SCRN MAMM (CAD)W/DAINELLE BILAT MR#: [id number] Acct: [id number] Name: ALEXA MINA Rep #: [id number] : 1960 F 60 From: Vance suárez MD PCP: Dr. Heather Rivera, Status: REG [facility] Study: SCRN MAMM (CAD)W/DANIELLE BILAT Date of Exam: 10/09 Exam# [id number] Ordering Dr: Ly Jennings DO MAMMOGRAPHY - BILATERAL SCREENING REASON FOR EXAM: Female, 60 years old. Routine annual screening examination. PERTINENT HISTORY: Mother with breast cancer. TECHNIQUE: Digital bilateral breast danielle (3D mammographic acquisition) in the CC and MLO projections. 2-D mediolateral oblique (MLO) and craniocaudad (CC) views of both breasts were obtained. CAD: Full Field Digital Mammography with Computer Added Detection was performed. COMPARISON: Comparison is made with prior study dated 11/13/2018 and 09/20/2017. FINDINGS: Breast Composition: The breasts are heterogeneously dense, which may obscure small masses. There are no dominant masses or suspicious calcifications. No other significant abnormalities are identified. There has been no significant change since the prior study. BI/SCRN MAMM (CAD)W/DANIELLE BILAT IMPRESSION: Stable bilateral screening mammogram. Yearly follow-up mammogram recommended. (A) ASSESSMENT CATEGORY: BIRADS Category 1: Negative. A letter regarding these results will be sent to the patient by the facility within 30 days. Approximately 10% of breast cancers are not detected by mammography. A normal mammogram should not delay biopsy of a clinically suspicious abnormality. [id number] Electronically Signed: Vance Hairston MD at 13:20 EDT , Service support , CC: Dr. Ly Jennings DO; Dr. Heather Rivera DO Refund Specialist: Signed Heather Rivera DO Work Phone: Start: 04-13-2020 End: 04-13-2020 Endocrinology Visit Report Comments: See Note; NOTES: [facility] [address] [place] [address]. [address] [place] [address] OFFICE VISIT Date of Service: MR#: [id number] Acct: [id number] Name: ALEXA MINA Rep #: [id number] : 1960 Provider: Salomón Vela Age/Sex: 60/F [place] [facility] [place]: Signed Intake Intake Visit Reasons: Amb Documentation Chief Complaint: Osteoporosis Allergies No Known Allergies Allergy (Unverified 04/09/20 16:11) [facility] Medical History Bone fracture (Acute) Heart murmur (Acute) Osteopenia (Acute) Vitamin deficiency (Acute) Surgical History History of (Acute) Family History Mother Breast cancer Social History (Updated 04/13/20 @ 08:[address] Anupam Hanson MD) Smoking Status: Never smoker alcohol intake: current alcohol intake frequency: a few times a week what type of physical activity do you participate in: weight training frequency: 3-4 times per week HPI HPI ALEXA MINA, is a 60 F who presents to the office today for follow up of osteoporosis. From last visit: The patient reports a history of fracture of L1 many years ago. She also fractured her shoulder falling off of a horse. She has chronic moderate back pain. LMP 2014, no estrogen therapy. No tobacco, has 3 drinks per week. No family history of osteoporosis. She was previously treated with oral Fosamax for 5 years. Unfortunately, her DEXA has worsened by 8%. T-score is -2.5 right femur. She has taken Forteo for one year. She has been out of medication for 1-2 months. She would like to resume therapy. Current Symptoms: denies bone pain, heartburn, abdominal pain, frequent falls, muscle weakness or unsteady gait/balance Nutritional Status: Yes: take OTC vitamin D Risk Factors: denies tobacco use, denies alcohol 2/day or more, has history of prior fracture, denies neurologic disorder Pertinent treatment/medication history: biphosphonates, Forteo/Tymlos Osteoporosis/Bone Results Calcium 8.9 mg/dL (8.5-10.1) 12/16/18 Albumin 3.8 g/dL (3.2-5.0) 12/16/18 ROS Const Constitutional: No excessive sweating, fatigue, frequent falls, headache(s), snoring, abnormal sleep pattern or change in appetite Eyes Eyes: No blurry vision, change in vision, double vision, discharge, dry eyes, bulging eyes, floaters, visual disturbances, eye pain, light sensitivity, spots in vision, tunnel vision or other ENT ENT: No abnormal hearing, ear pain, ear discharge, ear pressure, hearing loss, tinnitus, dizziness/vertigo, balance problems, nosebleed/epistaxis, nasal congestion, nasal obstruction, nose pain, sinus pressure, sinus pain, nasal discharge, post nasal drip, headache(s), facial pain, dental pain, dry mouth, difficulty swallowing, bad breath, hoarseness, lip swelling, mouth lesions, mouth pain, neck pain, sore throat, tongue swelling, throat swelling or other Cardio Cardiology: No chest pain at rest, chest pain with exertion, leg pain with exertion, excessive sweating, shortness of breath, dyspnea on exertion, generalized swelling, irregular heart rhythm, lightheadedness, orthopnea, radiating jaw, neck or arm pain, fast heart rate, slow heart rate, palpitations or other Musc Musculoskeletal: No muscle weakness, neck pain or leg pain with exertion Neuro Neurology: No abnormal hearing, behavioral changes, confusion, unsteady gait/balance, frequent falls, headache(s), memory loss or visual disturbances Psych Psychiatric: No abnormal sleep pattern, No lack of enjoyment, No anxiety, No behavioral changes, No change in appetite, No confusion, No depression, No difficulty concentrating, No hopelessness, No irritability, No memory loss, No mood swings, No panic attacks, No paranoia, No Thoughts of harming yourself/Others, No hallucinations, No other Adonis/Lymp Hematologic/Lymphatic: No easy bleeding, easy bruising, enlarged lymph nodes or other Resp Respiratory: No cough, change in phlegm color, chest congestion, excessive phlegm production, hemoptysis, pain on inspiration, shortness of breath, pain with cough, snoring, stridor, wheezing or other Gastro GI: No abdominal pain, heartburn or difficulty swallowing Skin Skin: No acne, hair loss, change in hair, nail changes, boil, change in skin color, dry skin, redness, excessive hair growth, yellowing of the skin, lesions, itching, rash, skin pain, skin ulcer, sores, skin swelling, wounds or other Breast Breast: No change in breast shape, breast lump, breast pain, breast skin changes, breast swelling, nipple discharge or other Endo Endocrine: No change in body appearance, cold intolerance, excessive sweating, fatigue, flushing, heat intolerance, increased thirst/drinking, increased hunger, increased urination or other Aller/Imm Allergy/Immunologic: No food intolerance, itchy eyes, lip swelling, seasonal allergy symptoms, throat swelling, tongue swelling, hives, wheezing or other Exam Const General: cooperative, healthy appearing, comfortable, no acute distress, well developed, not cushingoid Nutritional Appearance: well nourished Orientation: alert, awake, oriented x3 [facility] Head: normal to inspection Ears: hearing grossly normal bilaterally Nose: external nose normal Mouth: oral mucosae normal Eyes General: appearance normal, both eyes and all related structures Alignment and Position: alignment normal Periorbital: periorbital findings normal Eyelids: eyelids normal Conjunctivae: conjunctivae normal Neck Neck: normal visual inspection Neck mass: No Thyroid: thyroid normal Chest Chest palpation inspection: normal inspection of the chest Resp Effort Inspection: normal respiratory effort, able to speak in complete sentences, symmetric chest movement, no audible wheezes, no cough Cardio Rate: regular rate Rhythm: regular rhythm Pulses: posterior tibial pulses present GI Inspection: normal to inspection Auscultation: normal bowel sounds Palpation: soft, no hepatosplenomegaly Musc Musculoskeletal: No muscle weakness Skin General: no rashes or lesions noted Neuro General: alert, awake, oriented x3 Cranial Nerves: CN's II-XI intact bilaterally Cognition: normal cognition Speech: speech normal Gait: normal gait Motor: muscle tone normal throughout Extrem General: no edema Psych Appearance: grossly normal Mental Status: mental status grossly normal Mood: congruent mood Affect: normal affect Speech and Movement: speech and movement normal Attitude: cooperative Thought Process: normal Thought Content: normal Judgment: judgment good Assessment Plan 1. Age-related osteoporosis without current pathological fracture M81.0 Plan Restart Forteo. Follow up in one year to recheck bone density and decide on further plans. 2. Vitamin D deficiency E55.9 Plan Check levels. I have spent [32] minutes today reviewing labs, records and history. Time includes coordinating care, interpretation of tests, discussion with patient's other health care providers via telephone. This also includes time I spent with the patient for exam, treatment plan and education as well as documenting clinical information. Coding Level of Care Code Off vis,est,level 4 Diagnoses Age-related osteoporosis without current pathological fracture M81.0 ?Osteoporosis type: age-related ?Presence of current pathological fracture: without current pathological fracture Vitamin D deficiency E55.9 04/13/20 0816 <Electronically signed by Anupam Hanson MD> Date Anupam Hanson MD Cosign Signature: Date (if applicable) CC: Dr. Heather Rivera, DO Heather Rivera DO Work Phone: Start: 04-09-2020 End: 04-27-2020 Endocrinology Visit Report Comments: See Note; NOTES: [facility] [place] [address] OFFICE VISIT Date of Service: 04/09/20 MR#: [id number] Acct: [id number] Name: ALEXA MINA Rep #: [id number] : 1960 Provider: Salomón Vela Age/Sex: 60/F [place] [facility] [place]: Signed Intake Vital Signs 04/09/20 Height 5 ft 6 in 04/09/20 Weight: 141 lb 4 oz 04/09/20 BP 110/70 04/09/20 Blood Pressure Location Rt brachial 04/09/20 Position Sitting 04/09/20 Respiration 16 04/09/20 Pulse 75 04/09/20 Pulse Source Monitor 04/09/20 Temp 97.6 F L 04/09/20 Temp Source Temporal 04/09/20 Pulse Oximetry (%) 99 04/09/20 Oxygen Delivery Method room air Intake Visit Reasons: 6 M FU Chief Complaint: Osteoporosis Accompanied by: None Is patient in pain?: No Allergies No Known Allergies Allergy (Unverified 04/09/20 16:11) Is last menstrual period known: Yes Patient : No [facility] Medical History (Updated 04/13/20 @ 08:[address] Anupam Hanson MD) Bone fracture (Acute) Heart murmur (Acute) Osteopenia (Acute) Vitamin deficiency (Acute) Surgical History History of (Acute) Family History Mother Breast cancer Social History (Updated 04/27/20 @ 08:[address] Anupam Hanson MD) Smoking Status: Never smoker alcohol intake: current alcohol intake frequency: a few times a week what type of physical activity do you participate in: weight training frequency: 3-4 times per week HPI HPI Chief Complaint: Osteoporosis Details: ALEXA MINA is a 60 F who presents to the office today for ALEXA MINA is a 60 F who presents to the office today for follow up of osteoporosis. From last visit: The patient reports a history of fracture of L1 many years ago. She also fractured her shoulder falling off of a horse. She has chronic moderate back pain. LMP 2014, no estrogen therapy. No tobacco, has 3 drinks per week. No family history of osteoporosis. She was previously treated with oral Fosamax for 5 years. Unfortunately, her DEXA has worsened by 8%. T-score is -2.5 right femur. She has taken Forteo for one year. She has been out of medication for 1-2 months. She would like to resume therapy. Current Symptoms: denies bone pain, heartburn, abdominal pain, frequent falls, muscle weakness or unsteady gait/balance Nutritional Status: Yes: take OTC vitamin D Risk Factors: denies tobacco use, denies alcohol 2/day or more, has history of prior fracture, denies neurologic disorder Pertinent treatment/medication history: biphosphonates, Forteo/Tymlos Osteoporosis/Bone Results Calcium 8.9 mg/dL (8.5-10.1) 12/16/18 Albumin 3.8 g/dL (3.2-5.0) 12/16/18 ROS Const Constitutional: No anorexia, body ache, chills, excessive sweating, fatigue, fever(s), frequent falls, headache(s), decreased energy, malaise, night sweats, snoring, weakness, weight change, sleep problems, abnormal sleep pattern, change in appetite or other Eyes Eyes: No blurry vision, change in vision, double vision, discharge, dry eyes, bulging eyes, floaters, visual disturbances, eye pain, light sensitivity, spots in vision, tunnel vision or other ENT ENT: No abnormal hearing, ear pain, ear discharge, ear pressure, hearing loss, tinnitus, dizziness/vertigo, balance problems, nosebleed/epistaxis, nasal congestion, nasal obstruction, nose pain, sinus pressure, sinus pain, nasal discharge, post nasal drip, headache(s), facial pain, dental pain, dry mouth, difficulty swallowing, bad breath, hoarseness, lip swelling, mouth lesions, mouth pain, neck pain, sore throat, tongue swelling, throat swelling or other Cardio Cardiology: No chest pain at rest, chest pain with exertion, leg pain with exertion, excessive sweating, shortness of breath, dyspnea on exertion, generalized swelling, irregular heart rhythm, lightheadedness, orthopnea, radiating jaw, neck or arm pain, fast heart rate, slow heart rate, palpitations or other Musc Musculoskeletal: Positive for loss of height and Arthritis; no abnormal walking, neck pain, numbness, tingling, restless legs or leg pain with exertion Neuro Neurology: No abnormal walking, abnormal hearing, abnormal movements, abnormal speech, behavioral changes, confusion, unsteady gait/balance, dizziness, weakness, frequent falls, headache(s), lack of coordination, loss of vision, memory loss, numbness, tingling, visual disturbances, restless legs, fainting, tremor(s) or other Psych Psychiatric: No abnormal sleep pattern, No lack of enjoyment, No anxiety, No behavioral changes, No change in appetite, No confusion, No depression, No difficulty concentrating, No hopelessness, No irritability, No memory loss, No mood swings, No panic attacks, No paranoia, No Thoughts of harming yourself/Others, No hallucinations, No other Adonis/Lymp Hematologic/Lymphatic: No easy bleeding, easy bruising, enlarged lymph nodes or other Resp Respiratory: No cough, change in phlegm color, chest congestion, excessive phlegm production, hemoptysis, pain on inspiration, shortness of breath, pain with cough, snoring, stridor, wheezing or other Gastro GI: No abdominal pain, belching, bloating, change in bowel habits, change in stool character, coffee ground emesis, constipation, cramping, diarrhea, heartburn, difficulty swallowing, feeling full early, excessive flatus, incontinent of stools, Vomiting blood/hematemesis, blood in stool, loose stools, Black,tarry stools, nausea/dyspepsia, pain with swallowing, vomiting or other Skin Skin: Positive for hair loss; no itching or other Breast Breast: No change in breast shape, breast lump, breast pain, breast skin changes, breast swelling, nipple discharge or other Endo Endocrine: No change in body appearance, cold intolerance, excessive sweating, fatigue, flushing, heat intolerance, increased thirst/drinking, increased hunger, increased urination or other Aller/Imm Allergy/Immunologic: No food intolerance, itchy eyes, lip swelling, seasonal allergy symptoms, throat swelling, tongue swelling, hives, wheezing or other Exam Const General: cooperative, healthy appearing, comfortable, no acute distress, well developed, not cushingoid Nutritional Appearance: well nourished Orientation: alert, awake, oriented x3 [facility] Head: normal to inspection Ears: hearing grossly normal bilaterally Nose: external nose normal Mouth: oral mucosae normal Eyes General: appearance normal, both eyes and all related structures Alignment and Position: alignment normal Periorbital: periorbital findings normal Eyelids: eyelids normal Conjunctivae: conjunctivae normal Neck Neck: normal visual inspection Neck mass: No Thyroid: thyroid normal Carotids: no bruits Lymphatic: no lymphadenopathy noted Chest Chest palpation inspection: normal inspection of the chest Resp Effort Inspection: normal respiratory effort, able to speak in complete sentences, symmetric chest movement, no audible wheezes, no cough Auscultation: Bilateral: Clear to Auscultation Cardio Rate: regular rate Rhythm: regular rhythm Pulses: posterior tibial pulses present GI Inspection: normal to inspection Auscultation: normal bowel sounds Palpation: soft, no hepatosplenomegaly Skin General: no rashes or lesions noted Neuro General: alert, awake, oriented x3 Cranial Nerves: CN's II-XI intact bilaterally Cognition: normal cognition Speech: speech normal Gait: normal gait Motor: muscle tone normal throughout Extrem General: no edema Psych Appearance: grossly normal Mental Status: mental status grossly normal Mood: congruent mood Affect: normal affect Speech and Movement: speech and movement normal Attitude: cooperative Thought Process: normal Thought Content: normal Judgment: judgment good Assessment Plan Problems 1. Age-related osteoporosis without current pathological fracture M81.0 2. Vitamin d deficiency E55.9 Plan Continue Forteo. Confirm vitamin D and calcium are normal. Follow up in one year. I have spent [32] minutes today reviewing labs, records and history. Time includes coordinating care, interpretation of tests, discussion with patient's other health care providers via telephone. This also includes time I spent with the patient for exam, treatment plan and education as well as documenting clinical information. Orders Orders: Vitamin D,25 Hydroxy 04/13/20 E55.9, M81.0 Comprehensive Metabolic Profil 04/13/20 M81.0 Medications New: BD Ultra-Fine [place] Pen Needle (pen needle, diabetic) As directed 90 ea 3RF NS Refilled: Forteo (teriparatide) she has copay card 20 mcg (0.08 mL) subcut DAILY 7.2 mL 3RF NS Coding Level of Care Code Off vis,est,level 4 Diagnoses Age-related osteoporosis without current pathological fracture M81.0 ?Osteoporosis type: age-related ?Presence of current pathological fracture: without current pathological fracture Vitamin d deficiency E55.9 04/27/20 0819 <Electronically signed by Anupam Hanson MD> Date Anupam Hanson MD Cosigner Signature: Date (if applicable) CC: Heather Rivera DO Work Phone: Start: 02-20-2019 End: 02-20-2019 Office Visit Report Comments: See Note; NOTES: [id number] [place] [address] OFFICE VISIT Date of Service: 02/06/19 MR#: [id number] Acct: [id number] Patient: ALEXA MINA Rep #: [id number] : 1960 Provider: Anupam Hanson MD Age/Sex: 58/F [place] [facility] [place]: Signed Intake Intake Visit Reasons: FORTEO INJECTION Chief Complaint: Osteoporosis Allergies No Known Allergies Allergy (Unverified 12/12/18 14:10) Nursing Note Patient was instructed to use Forteo pen. Injection was given at appointment. 02/20/19 1352 <Electronically signed by Anupam Hanson MD> Date Anupam Hanson MD Cosigner Signature: Date (if applicable) CC: Heather Rivera DO Work Phone: Start: 11-13-2018 End: 11-17-2018 Dexa Bone Density Study Comments: See Note; NOTES: [facility] Imaging Services [address] [place] [address] Dexa Bone Density Study MR#: [id number] Acct: [id number] Name: ALEXA MINA Rep #: [id number] : 1960 F 58 From: Vance Hairston MD PCP: Heather Rivera DO Status: [facility] CLI Study: Dexa Bone Density Study Date of Exam: 11/13/18 Exam# [id number] Ordering Dr: Ifeoma Stout MD STUDY: DUAL ENERGY X-RAY ABSORPTIOMETRY / DXA REASON FOR EXAM: Female, 58 years old. The patient is postmenopausal. Loss of height. TECHNIQUE: Bone Mineral Density (BMD) measurements of lumbar spine and bilateral hips were obtained. COMPARISON: Comparison is made with prior study dated August 03, 2016. FINDINGS: Lumbar Spine (L1-L4): g/cm2 (0.905) / T-score (-2.3) / Z-score (-1.4) Findings are suggestive of osteopenia with a high fracture risk. Left Femur Total: g/cm2 (0.738) / T-score (-2.1) / Z-score (-1.4) Left Femoral Neck: g/cm2 (0.700) / T-score (-2.4) / Z-score (-1.4) Right Femur Total: g/cm2 (0.696) / T-score (-2.5) / Z-score (-1.4) The T-Scores on the most recent prior examination were: Lumbar Spine (L1-L4): There has been worsening of bone density since the previous examination. Left Femur Total: which represents a worsening of 2%. Right Femur Total: which represents a worsening of 8.3%. BD/Dexa Bone Density Study IMPRESSION: The patient is considered osteopenic as outlined below according to World Malcolm Organization (WHO) criteria with a high fracture risk. There has been worsening of bone density since the previous examination. Reference Information: The T-score is the number of standard deviations above or below the standard which is normal for young adults at their peak bone mineral density. The World Health Organization (WHO) interprets the T-scores as follows: Above -1 Normal bone density Between -1 and -2.5 Osteopenia Equal to / or below -2.5 Osteoporosis As a practical clinical guideline, osteopenia may be graded as follows: Mild -1 through -1.5 Moderate -1.6 through -2.0 Severe -2.1 through -2.4 The Z-score is the number of standard deviations above or below age-matched controls. A Z-score of less than -1.5 would be considered abnormal. References: 1. NIH Osteoporosis and Related Bone Diseases http://www.osteo.org 2. International Society for Clinical Densitometry http://www.iscd.org 3. National Osteoporosis Foundation http://www.nof.org Electronically Signed: Vance Hairston, at 8:35 EDT , Service support , CC: Ifeoma Stout MD; Heather Rivera DO Refund Specialist: Signed Heather Rivera DO Work Phone: Start: 11-13-2018 End: 11-17-2018 SCREEN MAMM (CAD) W/DANIELLE BILAT Comments: See Note; NOTES: [facility] Imaging Services [address] [place] [address] SCREEN MAMM (CAD) W/DANIELLE BILAT MR#: [id number] Acct: [id number] Name: ALEXA MINA Rep #: [id number] : 1960 F 58 From: Vance Hairston MD PCP: Heather Rivera DO Status: [facility] CL Study: SCREEN MAMM (CAD) W/DANIELLE BILAT Date of Exam: 11/13/18 Exam# [id number] Ordering Dr: Ifeoma Stout MD MAMMOGRAPHY - BILATERAL SCREENING REASON FOR EXAM: Female, 58 years old. Routine annual screening examination. PERTINENT HISTORY: Mother with breast cancer. TECHNIQUE: Digital bilateral breast danielle (3D mammographic acquisition) in the CC and MLO projections. 2-D mediolateral oblique (MLO) and craniocaudad (CC) views of both breasts were obtained. CAD: Full Field Digital Mammography with Computer Added Detection was performed. COMPARISON: Comparison is made with prior study dated September 20, 2017 and August 03, 2016. FINDINGS: Breast Composition: The breasts are heterogeneously dense, which may obscure small masses. There are no dominant masses or suspicious calcifications. No other significant abnormalities are identified. There has been no significant change since the prior study. BI/SCREEN MAMM (CAD) W/DANIELLE BILAT IMPRESSION: Stable bilateral screening mammogram. Yearly follow-up mammogram recommended. (A) ASSESSMENT CATEGORY: BIRADS Category 1: Negative. A letter regarding these results will be sent to the patient by the facility within 30 days. Approximately 10% of breast cancers are not detected by mammography. A normal mammogram should not delay biopsy of a clinically suspicious abnormality. [id number] Electronically Signed: Vance Hairston, at 12:34 EDT , Service support , CC: Ifeoma Stout MD; Heather Rivera DO Refund Specialist: Signed Heather Rivera DO Work Phone: Start: 09-20-2017 End: 09-20-2017 SCREENING MAMM (CAD), BILAT Comments: See Note; NOTES: [facility] Imaging Services [address] [place] [address] SCREENING MAMM (CAD), BILAT MR#: [id number] Acct: [id number] Name: ALEXA MINA Rep #: [id number] : 1960 F 57 From: Vance Hairston MD PCP: Heather Rivera DO Status: REG CLI Study: SCREENING MAMM (CAD), BILAT Date of Exam: 09/20/17 Exam# [id number] Ordering Dr: Ifeoma Stout MD MAMMOGRAPHY - BILATERAL SCREENING REASON FOR EXAM: Female, 57 years old. Routine annual screening examination. PERTINENT HISTORY: Mother with breast cancer. TECHNIQUE: Digital bilateral breast danielle (3D mammographic acquisition) in the CC and MLO projections. 2-D mediolateral oblique (MLO) and craniocaudad (CC) views of both breasts were obtained. CAD: Full Field Digital Mammography with Computer Added Detection was performed. COMPARISON: Comparison is made with prior study dated August 03, 2016 and January 29 FINDINGS: Breast Composition: The breasts are heterogeneously dense, which may obscure small masses. There are no dominant masses or suspicious calcifications. No other significant abnormalities are identified. There has been no significant change since the prior study. BI/SCREENING MAMM (CAD), BILAT IMPRESSION: Stable bilateral screening mammogram. Yearly follow-up mammogram recommended. (A) ASSESSMENT CATEGORY: BIRADS Category 1: Negative. A letter regarding these results will be sent to the patient by the facility within 30 days. Approximately 10% of breast cancers are not detected by mammography. A normal mammogram should not delay biopsy of a clinically suspicious abnormality. [id number] Electronically Signed: Vance Hairston MD at 14:59 EDT Tel [phone], Service support , CC: Ifeoma Stout MD; Heather Rivera DO Refund Specialist: Signed Heather Rivera DO Work Phone: Start: 08-03-2016 End: 08-08-2016 Vert Fx Asess/Lat Bone Den(H) Comments: See Note; NOTES: [facility] Imaging Services [address] [place] [id number] [place] [address] Vert Fx Asess/Lat Bone Den(H) MR#: [id number] Acct: [id number] Name: ALEXA MINA Rep #: [id number] : 1960 F 56 From: Vance Hairston MD PCP: Heather Rivera DO Status: REG CLI Study: Vert Fx Asess/Lat Bone Den(H) Date of Exam: 08/03/16 Exam# [id number] Ordering Dr: Dea Hall MD STUDY: DUAL ENERGY X-RAY ABSORPTIOMETRY / DXA REASON FOR EXAM: Female, 56 years old. Loss of height. TECHNIQUE: Bone Mineral Density (BMD) measurements of lumbar spine and thoracic spine were obtained. COMPARISON: None. FINDINGS: There is minimal loss of height of the superior endplate of the L1 vertebrae as well as the superior endplate of the T9 vertebrae. HPBD/Vert Fx Asess/Lat Bone Den(H) IMPRESSION: Minimal loss of height of the superior endplate of the T9 and L1 vertebrae. References: 1. NIH Osteoporosis and Related Bone Diseases http://www.osteo.org 2. International Society for Clinical Densitometry http://www.iscd.org 3. National Osteoporosis Foundation http://www.nof.org Electronically Signed: Vance Hairston MD at 8:36 EDT Tel [phone], Service support , CC: Heather Rivera DO; Dea Hall MD Refund Specialist: Signed Heather Rivera DO Work Phone: Start: 08-03-2016 End: 08-08-2016 Dexa Bone Density Study (HP) Comments: See Note; NOTES: [facility] Imaging Services [address] [place] [id number] Verda 4d Dexa Bone Density Study () MR#: [id number] Acct: [id number] Name: ALEXA MINA Rep #: [id number] : 1960 F 56 From: Vance Hairston MD PCP: Heather Rivera DO Status: REG CLI Study: Dexa Bone Density Study (HP) Date of Exam: 08/03/16 Exam# [id number] Ordering Dr: Ifeoma Stout MD STUDY: DUAL ENERGY X-RAY ABSORPTIOMETRY / DXA REASON FOR EXAM: Female, 56 years old. The patient is perimenopausal. Loss of height. TECHNIQUE: Bone Mineral Density (BMD) measurements of lumbar spine and bilateral hips were obtained. COMPARISON: Comparison is made with prior study dated March 21, 2011. FINDINGS: Lumbar Spine (L1-L4): g/cm2 (0.973) / T-score (-1.7) / Z-score (-1.0) Findings are suggestive of osteopenia with a moderate fracture risk. Left Femur Total: g/cm2 (0.738) / T-score (-2.1) / Z-score (-1.5) Left Femoral Neck: g/cm2 (0.714) / T-score (-2.3) / Z-score (-1.4) Right Femur Total: g/cm2 (0.753) / T-score (-2.0) / Z-score (-1.4) Right Femoral Neck: g/cm2 (0.759) / T-score (-2.0) / Z-score (-1.0) The T-Scores on the most recent prior examination were: Lumbar Spine (L1-L4): There has been worsening of bone density since the previous examination. Left Femur Total: which represents a worsening of 5.9%. Right Femur Total: which represents a worsening of 6.7%. HPBD/Dexa Bone Density Study (HP) IMPRESSION: The patient is considered osteopenic as outlined below according to World Malcolm Organization (WHO) criteria with a moderate fracture risk. There has been worsening of bone density since the previous examination. Reference Information: The T-score is the number of standard deviations above or below the standard which is normal for young adults at their peak bone mineral density. The World Health Organization (WHO) interprets the T-scores as follows: Above -1 Normal bone density Between -1 and -2.5 Osteopenia Equal to / or below -2.5 Osteoporosis As a practical clinical guideline, osteopenia may be graded as follows: Mild -1 through -1.5 Moderate -1.6 through -2.0 Severe -2.1 through -2.4 The Z-score is the number of standard deviations above or below age-matched controls. A Z-score of less than -1.5 would be considered abnormal. References: 1. NIH Osteoporosis and Related Bone Diseases http://www.osteo.org 2. International Society for Clinical Densitometry http://www.iscd.org 3. National Osteoporosis Foundation http://www.nof.org Electronically Signed: Vance Hairston MD at 8:34 EDT Tel [phone], Service support , CC: Ifeoma Stout MD; Heather Rivera DO Refund Specialist: Signed Heather Rivera DO Work Phone: Start: 08-03-2016 End: 08-07-2016 SCREENING MAMM (CAD), BILAT Comments: See Note; NOTES: [facility] Imaging Services [address] [place] [id number] Verdana 4d SCREENING MAMM (CAD), BILAT MR#: [id number] Acct: [id number] Name: ALEXA MINA Rep #: [id number] : 1960 F 56 From: Vance Hairston MD PCP: Heather Rivera DO Status: REG CLI Study: SCREENING MAMM (CAD), BILAT Date of Exam: 08/03/16 Exam# [id number] Ordering Dr: Ifeoma Stout MD MAMMOGRAPHY - BILATERAL SCREENING REASON FOR EXAM: Female, 56 years old. Routine annual screening examination. PERTINENT HISTORY: Mother with breast cancer. TECHNIQUE: Digital bilateral breast danielle (3D mammographic acquisition) in the CC and MLO projections. 2-D mediolateral oblique (MLO) and craniocaudad (CC) views of both breasts were obtained. CAD: Full Field Digital Mammography with Computer Added Detection was performed. COMPARISON: Comparison is made with prior study dated January 29, 2015 and September 27, 2012. FINDINGS: Breast Composition: The breasts are heterogeneously dense, which may obscure small masses. There are no dominant masses or suspicious calcifications. No other significant abnormalities are identified. There has been no significant change since the prior study. HPBI/SCREENING MAMM (CAD), BILAT IMPRESSION: Stable bilateral screening mammogram. Yearly follow-up mammogram recommended. (A) ASSESSMENT CATEGORY: BIRADS Category 1: Negative. A letter regarding these results will be sent to the patient by the facility within 30 days. Approximately 10% of breast cancers are not detected by mammography. A normal mammogram should not delay biopsy of a clinically suspicious abnormality. [id number] Electronically Signed: Vance Hairston MD at 9:34 EDT Tel [phone], Service support , CC: Ifeoma Stout MD; Heather Rivera DO Refund Specialist: Signed Heather Rivera DO Work Phone: Start: 01-29-2015 End: 01-29-2015 Bilat Scrn Digital AND CAD Comments: See Note; NOTES: [facility] Imaging Services [address] [place] [id number] Verdana 4d Bilat Scrn Digital AND CAD MR#: [id number] Acct: [id number] Name: ALEXA MINA Rep #: [id number] : 1960 F 54 From: Vance Hairston MD PCP: Heather Rivera DO Status: REG CLI Study: Bilat Scrn Digital AND CAD Date of Exam: 01/29/15 Exam# [id number] Ordering Dr: Ifeoma Stout MD MAMMOGRAPHY - BILATERAL SCREENING REASON FOR EXAM: Female, 54 years old. Routine annual screening examination. PERTINENT HISTORY: Mother with breast cancer. TECHNIQUE: Digital examination. Mediolateral oblique (MLO) and craniocaudad (CC) views of both breasts were obtained. CAD: CAD was performed on this study. COMPARISON: Comparison is made with prior study dated September 27, 2012 and March 21, 2011. FINDINGS: Breast Composition: The breasts are heterogeneously dense, which may obscure small masses. There are no dominant masses or suspicious calcifications. The previously seen nodular density in the deep midportion of the left breast has cleared. No other significant abnormalities are identified. IMPRESSION: Stable bilateral screening mammogram. Yearly follow-up recommended. (A) ASSESSMENT CATEGORY: BIRADS Category 2: Benign. A letter regarding these results will be sent to the patient by the facility within 30 days. Approximately 10% of breast cancers are not detected by mammography. A normal mammogram should not delay biopsy of a clinically suspicious abnormality. [id number] Electronically Signed: Vance Hairston MD at 13:08 EST Tel [phone], Service support [phone], CC: Ifeoma Stout MD; Heather Rivera DO Refund Specialist: Signed Tracy A Jose E ANDRES Work Phone: Start: 01-29-2015 End: 02-01-2015 Ribs Uni Min 3V w/PA Chest Comments: See Note; NOTES: [facility] Imaging Services [address] [place] [id number] Verdana 4d Ribs Uni Min 3V w/PA Chest MR#: [id number] Acct: [id number] Name: ALEXA MINA Rep #: [id number] : 1960 F 54 From: Aftab العراقي MD PCP: Heather Rivera DO Status: REG CLI Study: Ribs Uni Min 3V w/PA Chest Date of Exam: 01/29/15 Exam# [id number] Ordering Dr: Ifeoma Stout MD STUDY: X-RAY - UNILATERAL RIBS ( RIGHT ) WITH CHEST REASON FOR EXAM: Female, 54 years old. Hit mid lateral right ribs. Pain TECHNIQUE - RIBS: 4 view(s) of the ribs. TECHNIQUE - CHEST: Single PA view of the chest. COMPARISON: None. FINDINGS - RIBS: Normal visualized ribs without a demonstrated fracture. FINDINGS - CHEST: The lungs are clear and expanded. There is no demonstrated pleural abnormality. Normal size heart. Normal mediastinum and patience. Normal visualized pulmonary arteries. Normal visualized aortic arch and descending thoracic aorta. There is mild extra scoliosis. Normal visualized ribs, clavicles, and shoulders. There is no demonstrated abnormality of the visualized soft tissue structures of the upper abdomen. IMPRESSION: RIBS: Normal x-ray examination of the ribs. Mild scoliosis of the thoracic spine CHEST: Normal x-ray examination of the chest. Electronically Signed: Aftab العراقي MD, FACR at 19:52 EST , Service support [phone], RAD/Ribs Uni Min 3V w/PA Chest IMPRESSION: RIBS: Normal x-ray examination of the ribs. Mild scoliosis of the thoracic spine CHEST: Normal x-ray examination of the chest. Electronically Signed: Aftab العراقي MD, FACR at 19:52 EST , Service support [phone], CC: Ifeoma Stout MD; Heather Rivera DO Refund Specialist: Signed Tracy Dorantes DO Work Phone: Plan of Treatment Date Care Activity Detail Author Start: 04-11-2021 Cltx dstl rdl fx/epiphysl sep w/manj when perf TREAT FRACTURE RADIUS/ULNA [facility] Work Phone: Start: 03-20-2019 Procedure Education Eprescribed prescriptions (G8553) [facility] Work Phone: Start: 11-05-2015 Patient Education Biopsy: skin biopsy [facility] Work Phone: Start: 11-05-2015 Provider Instructions for Treatment *Colon Cancer Screening [facility] Work Phone: Start: 11-05-2015 Lipid panel LIPID PANEL (57771) [facility] Work Phone: Start: 11-05-2015 25 hydroxy includes fractions if performed CALCIFIDIOL (25129) VIT D 25 [facility] Work Phone: Start: 01-29-2015 Procedure Education Eprescribed prescriptions (G8553) [facility] Work Phone: Start: 06-13-2006 Provider Instructions for Treatment Well Female Maintenance (KF) [facility] Work Phone: Patient Education ED Colles Lidia kate, Reduction Required [facility] Work Phone: Patient referral [facility] Work Phone: [facility] Work Phone: [facility] Work Phone: [facility] Work Phone: Payers Date Payer Category Payer Self-pay [id number] 2023 Unknown [id number] Unknown [id number] Unknown [place] Unknown ANTHEM [id number] Unknown [id number] [id number] [id number] Unknown [id number] [id number] [id number] Unknown [id number] [id number] [id number] Unknown [id number] 2.16.8 [id number] Unknown [id number] 2.16.8 [id number] Unknown [id number] [id number] [id number] Social History Date Type Detail Facility Start: 04-11-2021 End: 11-21-2022 Tobacco smoking status MNIS Unknown if ever smoked [facility] Start: 1960 Sex Assigned At Female [facility] Alcohol Use Alcohol Use [facility] Work Phone: Comment on above: 1 glass wine couple x week Start: 04-02-2024 Tobacco smoking status NHIS Never smoked tobacco (finding) [facility] Sex Female [facility] Medical Equipment Procedure Code Equipment Code Equipment Origin al Text Equipment Identifier Dates Pen Needle, Diab etic (Bd Ultra-Fine [place] Pen Needle) 32 gauge x 5/32 needle Start: 04-09-2020 Pen Needle, Diab etic (Bd Ultra-Fine [place] Pen Needle) 32 gauge x 5/32 needle Start: 04-09-2020 Pen Needle, Diab etic (Bd Ultra-Fine [place] Pen Needle) 32 gauge x 5/32 needle Start: 04-09-2020 Pen Needle, Diab etic (Bd Ultra-Fine [place] Pen Needle) 32 gauge x 5/32 needle Start: 04-09-2020 Pen Needle, Diab etic (Bd Ultra-Fine [place] Pen Needle) 32 gauge x 5/32 needle Start: 04-09-2020 Pen Needle, Diab etic (Bd Ultra-Fine [place] Pen Needle) 32 gauge x 5/32 needle Start: 04-09-2020 Pen Needle, Diab etic (Bd Ultra-Fine [place] Pen Needle) 32 gauge x 5/32 needle Start: 04-09-2020 Pen Needle, Diab etic (Bd Ultra-Fine [place] Pen Needle) 32 gauge x 5/32 needle Start: 04-09-2020 End: 11-21-2024 Mental Status Date Assessment Result Facility 03-06-2022 Cognitive function Awake;Alert;A ppropriate;Fol lows Commands [facility] Work Phone: 04-11-2021 Cognitive function Drowsy [facility] Work Phone: Evaluation note Note Date & Type Note Facility Evaluation note Diagnosis Onset Date Osteoporosis chronic Vitamin D deficiency [facility] Work Phone: Evaluation note Note Date & Type Note Facility Evaluation note No assessment information availa ble [facility] Work Phone: Evaluation note Note Date & Type Note Facility Evaluation note Diagnosis Onset Date Osteoporosis chronic Osteoporosis chronic Vitamin D deficiency [facility] Work Phone: Instructions Note Date & Type Note Facility Instructions Name How to access health information online Indication:Non-smoker Start: 0 Instruction Type:Patient Education How to access health information online - Detail Indication:Non-smoker Start: 0 Instruction Type:Patient Education Patient Instructions Indication:Non-smoker Start: 0 Instruction Type:Provider Instructions for Treatment How to access health information online Indication:Skin neoplasm Start: 6 Instruction Type:Patient Education How to access health information online - Detail Indication:Skin neoplasm Start: 6 Instruction Type:Patient Education Patient Instructions Indication:Skin neoplasm Start: 6 Instruction Type:Provider Instructions for Treatment How to access health information online Indication:Rib pain Start: 5 Instruction Type:Patient Education How to access health information online - Detail Indication:Rib pain Start: 5 Instruction Type:Patient Education Patient Instructions Indication:Rib pain Start: 5 Instruction Type:Provider Instructions for Treatment [facility] Work Phone: Instructions Note Date & Type Note Facility Instructions Name How to access health information online Indication:Non-smoker Start: 0 Instruction Type:Patient Education How to access health information online - Detail Indication:Non-smoker Start: 0 Instruction Type:Patient Education Patient Instructions Indication:Non-smoker Start: 0 Instruction Type:Provider Instructions for Treatment How to access health information online Indication:Skin neoplasm Start: 6 Instruction Type:Patient Education How to access health information online - Detail Indication:Skin neoplasm Start: 6 Instruction Type:Patient Education Patient Instructions Indication:Skin neoplasm Start: 6 Instruction Type:Provider Instructions for Treatment How to access health information online Indication:Rib pain Start: 5 Instruction Type:Patient Education How to access health information online - Detail Indication:Rib pain Start: 5 Instruction Type:Patient Education Patient Instructions Indication:Rib pain Start: 5 Instruction Type:Provider Instructions for Treatment [facility] Work Phone: Instructions Note Date & Type Note Facility Instructions Name How to access health information online Indication:Non-smoker Start: 0 Instruction Type:Patient Education How to access health information online - Detail Indication:Non-smoker Start: 0 Instruction Type:Patient Education Patient Instructions Indication:Non-smoker Start: 0 Instruction Type:Provider Instructions for Treatment How to access health information online Indication:Skin neoplasm Start: 6 Instruction Type:Patient Education How to access health information online - Detail Indication:Skin neoplasm Start: 6 Instruction Type:Patient Education Patient Instructions Indication:Skin neoplasm Start: 6 Instruction Type:Provider Instructions for Treatment How to access health information online Indication:Rib pain Start: 5 Instruction Type:Patient Education How to access health information online - Detail Indication:Rib pain Start: 5 Instruction Type:Patient Education Patient Instructions Indication:Rib pain Start: 5 Instruction Type:Provider Instructions for Treatment [facility] Work Phone: Instructions Note Date & Type Note Facility Instructions Name How to access health information online Indication:Non-smoker Start: 0 Instruction Type:Patient Education How to access health information online - Detail Indication:Non-smoker Start: 0 Instruction Type:Patient Education Patient Instructions Indication:Non-smoker Start: 0 Instruction Type:Provider Instructions for Treatment How to access health information online Indication:Skin neoplasm Start: 6 Instruction Type:Patient Education How to access health information online - Detail Indication:Skin neoplasm Start: 6 Instruction Type:Patient Education Patient Instructions Indication:Skin neoplasm Start: 6 Instruction Type:Provider Instructions for Treatment How to access health information online Indication:Rib pain Start: 5 Instruction Type:Patient Education How to access health information online - Detail Indication:Rib pain Start: 5 Instruction Type:Patient Education Patient Instructions Indication:Rib pain Start: 5 Instruction Type:Provider Instructions for Treatment [facility] Work Phone: Instructions Note Date & Type Note Facility Instructions Name How to access health information online Indication:Non-smoker Start: 0 Instruction Type:Patient Education How to access health information online - Detail Indication:Non-smoker Start: 0 Instruction Type:Patient Education Patient Instructions Indication:Non-smoker Start: 0 Instruction Type:Provider Instructions for Treatment How to access health information online Indication:Skin neoplasm Start: 6 Instruction Type:Patient Education How to access health information online - Detail Indication:Skin neoplasm Start: 6 Instruction Type:Patient Education Patient Instructions Indication:Skin neoplasm Start: 6 Instruction Type:Provider Instructions for Treatment How to access health information online Indication:Rib pain Start: 5 Instruction Type:Patient Education How to access health information online - Detail Indication:Rib pain Start: 5 Instruction Type:Patient Education Patient Instructions Indication:Rib pain Start: 5 Instruction Type:Provider Instructions for Treatment [facility] Work Phone: Reason for referral (narrative) Note Date & Type Note Facility Reason for referral (narrative) No reason for referral information available [facility] Work Phone: Chief Complaint and Reason for Visit Chief Complaint 1 Y FU LEFT WRIST DEFORMITY OSTEO XRAY COLLES FX LEFT RADIUS/RX HERE LEFT WRIST COLLES FX Reason for Visit Osteoporosis Vitamin D deficiency Chief Complaint XRAY LEFT WRIST COLLES FX COLLES FX LEFT RADIUS/RX HERE PROLIA Chief Complaint PROLIA COLLES FX LEFT RADIUS/RX HERE SCREENING Chief Complaint COLLES FX LEFT RADIU S/RX HERE SCREENING PROLIA Chief Complaint Prolia Injection 1 Y FU EORDER Reason for Visit Osteoporosis Osteoporosis Vitamin D deficiency Chief Complaint Admit Date XRAY April 02, 2024 1:17pm OSTEO June 24, 2024 9:13am Chief Complaint Admit Date XRAY April 02, 2024 1:17pm OSTEO June 24, 2024 9:13am Prolia- B&B July 16, 2024 4:33p m Chief Complaint Admit Date 1 Y FU November 21, 2024 9: 57am Advance Directives No Advanced Directives Records Found Advance Directive Response Recorded Date/ Time Living Will No April 11, 2 022 6:47pm Power of Liner Helper No April 11, 2021 6:47pm Advance Directive Response Recorded Date/ Time Living Will No April 11, 2 022 5:47pm Power of Liner Helper No April 11, 2021 5:47pm Advance Directive Response Recorded Date/ Time Living Will No October 12 11:11am Power of Liner Helper No October 12, 2 023 11:11am Advance Directive Response Recorded Date/ Time Living Will No October 12 11:11am Do you have a [facility] Power of Liner Helper? No October 12, 2022 11:11am Summary Purpose Family History No Family History Records Found Additional Source Comments Goals (unrecognized section and content) Goals may be documented in a n alternate sectionGoals may be documented in an alternate sectionGoals may be documented in an alternate sectionGoals may be documented in an alternate sectionGoals may be documented in an alternate sectionGoals may be documented in an alternate sectionGoals may be documented in an alternate sectionGoals may be documented in an alternate section Care Teams (unrecognized sec tion and content) Team Status: Active Member Role Status Dates Dr. Heather Rivera , DO Family Provider Active Dr. Heather Rivera , DO Primary Care Provider Active Team Status: Inactive Member Role Status Dates Dr. Heather Rivera , DO Primary Care Provider Active Dr. Gabriele Jennings MD Attending Provider, Referring P dagoberto Active Team Status: Inactive Member Role Status Dates Dr. Heather Rivera , DO Primary Care Provider Active YADIRA Skelton Attending Provider, Referring Pr jayjay Active Team Status: Inactive Member Role Status Dates Dr. Heather Rivera , DO Primary Care Pr jayjay, Attending Provider, Referring Provider Active Team Status: Inactive Member Role Status Dates Dr. Heather Rivera DO Primary Care Provider, Referr ing Provider Active Dr. Anupam Hanson MD Attending Provider Active Team Status: Inactive Member Role Status Dates Dr. Heather Rivera DO Primary Care Provider Active Dr. Anupam Hanson MD Attending Provider Active Team Status: Inactive Member Role Status Dates Dr. Heather Rivera DO Primary Care Provider Active Dr. Anupam Hanson MD Attending Provider, Referring Provi mili Active Team Status: Active Member Role Status Dates Dr. Heather Rivera DO Primary Care Provider Active Team Status: Inactive Member Role Status Dates Dr. Heather Rivera DO Primary Care Provider Active Start: April 02, 2024 End: April 02, 2024 Dr. Phuc Andrew MD Attending Provider Active S tart: April 02, 2024 End: April 02, 2024 Team Status: Inactive Member Role Status Dates Dr. Heather Rivera DO Primary Care Provider Active Start: June 24, 2024 End: June 24, 2024 Dr. Anupam Hanson MD Attending Provider Active Sta rt: June 24, 2024 End: June 24, 2024 Dr. Anupam Hanson MD Referring Provider Active Sta rt: June 24, 2024 End: June 24, 2024 Team Status: Inactive Member Role Status Dates Dr. Heather Rivera DO Primary Care Provider Active Start: July 16, 2024 End: July 16, 2024 Dr. Heather Rivera DO Referring Provider Active Start: July 16, 2024 End: July 16, 2024 YADIRA Skelton Attending Provider Active Start: July 16, 2024 End: July 16, 2024 Team Status: Active Member Role/Relationship Status Dates Dr. Heather Rivera DO Primary care physician Active Team Status: Inactive Member Role/Relationship Status Dates Dr. Heather Rivera DO Primary care physician Active Start: November 21, 2024 End: November 21, 2024 Dr. Heather Rivera DO Referring Provider Active Start: November 21, 2024 End: November 21, 2024 Dr. Anupam Hanson MD Attending physician Active St art: November 21, 2024 End: November 21, 2024 INFORMATION SOURCE (unrecogn ized section and content) DATE CREATED AUTHOR 12/24/2024 [facility] FOR RECORDS PERTAINING TO PATIENTS WHO ARE OR HAVE BEEN ENROLLED IN A CHEMICAL DEPENDENCY/SUBSTANCEABUSE PROGRAM, SOME INFORMATION MAY BE OMITTED. This clinical summary was aggregated from multiple sources. Caution should be exercised in using it in the provision of clinical care. This summary normalizes information from multiple sources, and as a consequence, information in this document may materially change the coding, format and clinical context of patient data. In addition, data may be omitted in some cases. CLINICAL DECISIONS SHOULD BE BASED ON THE PRIMARY CLINICAL RECORDS. [facility] [employer] [facility] provides no warranty or guarantee of the accuracy or completeness of information in this document.
== END | disposition home or self-care (01) ==
LOC: OPBI 13:46
PROVIDERS: PCP Internal Medicine; Referring Provider Internal Medicine; Visit Provider Internal Medicine
DX: Z12.31 Encounter for screening mammogram for malignant neoplasm of breast (principal); Z80.3 Family history of malignant neoplasm of breast
CPT/HCPCS: 77063; 77067